=== PATIENT | male | born 1980 | race Hispanic/Latino ===

== ENCOUNTER 2017-11-04 07:35 | Emergency (ER) | payer MEDICAID ==
[~2017-11-04 07:35] MED LIST: CITA-107 PO; CLOP75TA32 PO; FAMO20TA8 PO; INSU100C6 SQ; INSU100I24 SQ; METO25TA6 PO; ONDA8TAB8 PO; PANT40TA25 PO; TRAM50TA4 PO; TYL3B PO
[2017-11-04] MEDS ORDERED: NITROGLYCERIN 0.4 MG SL TAB SL ONE (08:01)
[2017-11-04] MEDS ORDERED: ASPIRIN 325 MG TABLET ONE (08:01)
[2017-11-04] MEDS ORDERED: FAMOTIDINE/PF 20 MG/2 ML VIAL IV ONE (08:01)
[2017-11-04 08:02] LABS: BASOPHILS % (AUTO) 0.6 % (0.0-5.0); EOSINOPHILS % (AUTO) 0.6 % (0.0-8.0); HEMATOCRIT 47.5 % (42-54); LYMPHOCYTES % (AUTO) 16.7 % (21.0-51.0); MEAN CORPUSCULAR HEMOGLOBIN 25.9 pg (27.0-33.0); MEAN CORPUSCULAR HGB CONC 33.1 g/dL (32.0-36.0); MEAN CORPUSCULAR VOLUME 78.1 fL (79-99); MONOCYTES % (AUTO) 5.4 % (3.0-13.0); NEUTROPHILS % (AUTO) 76.7 % (40.0-77.0); PLATELET COUNT (AUTO) 244 K/uL (130-400); RED BLOOD CELL COUNT(AUTO) 6.08 MIL/uL (4.50-6.20)
[2017-11-04 08:19] LABS: INR 0.92 (0.85-1.15); PROTHROMBIN TIME 9.7 SEC (9.6-11.6)
[2017-11-04 08:20] LABS: POTASSIUM 4.1 mmol/L (3.5-5.1)
[2017-11-04 08:26] LABS: ALBUMIN 3.4 g/dL (3.5-5.0); BILIRUBIN,TOTAL 0.4 mg/dL (0.2-1.0); TOTAL PROTEIN, SERUM 7.5 g/dL (6.0-8.3)
[2017-11-04] MEDS ORDERED: ONDANSETRON HCL 4 MG/2 ML VIAL ONE (08:32)
[2017-11-04] MEDS ORDERED: SODIUM CHLORIDE 0.9% 500ML 500 ML IV ONE (08:33)
[2017-11-04] MEDS ORDERED: KETOROLAC TROMETHAMINE 30MG/ML ONE (08:37)
[2017-11-04] MEDS ORDERED: MORPHINE SULFATE 8 MG/ML VIAL ONE (09:26)
[2017-11-04] MEDS ORDERED: MAG HYDROX/AL HYDROX/SIMETH ES 30 ML SUSP UDCUP ONE (10:10)
[2017-11-04] MEDS ORDERED: LIDOCAINE HCL 2% VISCOUS 15 ML UDCUP ONE (10:10)
[2017-11-04 10:24] LABS: APPEARANCE,URINE Clear (CLEAR); BILIRUBIN,URINE Negative (NEGATIVE); COLOR,URINE Yellow (YELLOW); GLUCOSE, URINE (UA) >=1000 mg/dL (NEGATIVE); KETONES,URINE Negative (NEGATIVE); LEUKOCYTE ESTERASE ,URINE Negative (NEGATIVE); NITRATE,URINE Negative (NEGATIVE); OCCULT BLOOD,URINE Negative (NEGATIVE); PH,URINE 5.5 (5.0-8.0); PROTEIN,URINE Negative (NEGATIVE)
[2017-11-04 10:31] LABS: AMPHET/METH SCREEN,URINE NEGATIVE (NEGATIVE); BARBITURATE SCREEN, URINE NEGATIVE (NEGATIVE); BENZODIAZEPINES SCREEN,URINE NEGATIVE (NEGATIVE); CANNABINOID SCREEN,URINE NEGATIVE (NEGATIVE); COCAINE SCREEN,URINE NEGATIVE (NEGATIVE); OPIATE SCREEN,URINE NEGATIVE (NEGATIVE); PHENCYCLIDINE SCREEN,URINE NEGATIVE (NEGATIVE)
[2017-11-04 10:47] LABS: BACTERIA,URINE Rare /HPF (None Seen); WBC,URINE 0-1 /HPF (0-1)
[2017-11-04 10:48] LABS: SQUAMOUS EPITHELIAL CELL,UR Rare /LPF (0-2)
[2017-11-04] MEDS ORDERED: SUCRALFATE 1 GM TABLET ONE (15:05)
== END 2017-11-04 15:18 | disposition home or self-care (01) ==
LOC: EDH 07:35
DX: R07.9 Chest pain, unspecified (principal); R10.9 Unspecified abdominal pain; E11.9 Type 2 diabetes mellitus without complications; Z79.4 Long term (current) use of insulin; Z87.891 Personal history of nicotine dependence; Z88.1 Allergy status to other antibiotic agents; Z88.8 Allergy status to other drugs, medicaments and biological substances
CPT/HCPCS: 36415; 71045; 80053; 80305; 81001; 83690; 84484 ×2; 85025; 85610; 85730; 93005 ×2; 96365; 96368; 96375; 99291; J1885; J2270; J2405; J3490; J7040

== ENCOUNTER → 2017-11-14 | Outpatient (CLI) | payer MEDICAID ==
[~2017-11-14] MED LIST changes: +ASPI-555 PO; +CANA300T PO; +LISI2.5T2 PO; +POTA2TAB18 PO; +PRAV40TA3 PO
== END ==
LOC: OIH 11:33
PROVIDERS: ATTEND Family Medicine
DX: I10 Essential (primary) hypertension (principal); Z95.1 Presence of aortocoronary bypass graft
CPT/HCPCS: 71046

== ENCOUNTER 2017-12-03 00:25 | Emergency (ER) | payer MEDICAID ==
[~2017-12-03 00:25] MED LIST changes: -ASPI-555 PO; -CANA300T PO; -LISI2.5T2 PO; -POTA2TAB18 PO; -PRAV40TA3 PO
[2017-12-03 02:29] LABS: APPEARANCE,URINE Clear (CLEAR); BILIRUBIN,URINE Negative (NEGATIVE); COLOR,URINE Yellow (YELLOW); GLUCOSE, URINE (UA) >=1000 mg/dL (NEGATIVE); KETONES,URINE Negative (NEGATIVE); LEUKOCYTE ESTERASE ,URINE Negative (NEGATIVE); NITRATE,URINE Negative (NEGATIVE); OCCULT BLOOD,URINE Negative (NEGATIVE); PROTEIN,URINE Negative (NEGATIVE); UROBILINOGEN,URINE 0.2 mg/dL (0.2-1.0)
[2017-12-03 02:38] LABS: BASOPHILS % (AUTO) 0.6 % (0.0-5.0); EOSINOPHILS % (AUTO) 0.3 % (0.0-8.0); HEMATOCRIT 47.1 % (42-54); LYMPHOCYTES % (AUTO) 16.2 % (21.0-51.0); MEAN CORPUSCULAR HEMOGLOBIN 25.7 pg (27.0-33.0); MEAN CORPUSCULAR HGB CONC 32.7 g/dL (32.0-36.0); MEAN CORPUSCULAR VOLUME 78.6 fL (79-99); MONOCYTES % (AUTO) 5.6 % (3.0-13.0); NEUTROPHILS % (AUTO) 77.3 % (40.0-77.0); PLATELET COUNT (AUTO) 215 K/uL (130-400); RED BLOOD CELL COUNT(AUTO) 5.99 MIL/uL (4.50-6.20); RED CELL DISTRIBUTION WIDTH 15.3 % (11.0-15.5); WHITE BLOOD COUNT (AUTO) 11.8 K/uL (4.8-10.8)
[2017-12-03] MEDS ORDERED: ONDANSETRON HCL 4 MG/2 ML VIAL ONE (02:43)
[2017-12-03] MEDS ORDERED: SODIUM CHLORIDE 0.9% 1000ML 1,000 ML IV ONE ×2 (02:43→03:37)
[2017-12-03 02:45] LABS: BACTERIA,URINE None Seen /HPF (None Seen); RBC,URINE 0-1 /HPF (0-1); SQUAMOUS EPITHELIAL CELL,UR Rare /LPF (0-2); WBC,URINE None Seen /HPF (0-1); YEAST,URINE BUDDING None Seen /HPF (None Seen)
[2017-12-03 02:53] LABS: CREATININE 1.2 mg/dL (0.5-1.5); POTASSIUM 4.1 mmol/L (3.5-5.1)
[2017-12-03 02:58] LABS: ALBUMIN 3.3 g/dL (3.5-5.0); BILIRUBIN,TOTAL 0.2 mg/dL (0.2-1.0); TOTAL PROTEIN, SERUM 7.5 g/dL (6.0-8.3)
[2017-12-03] MEDS ORDERED: MAG HYDROX/AL HYDROX/SIMETH ES 30 ML SUSP UDCUP ONE (03:37)
[2017-12-03] MEDS ORDERED: LIDOCAINE HCL 2% VISCOUS 15 ML UDCUP ONE (03:37)
[2017-12-03] MEDS ORDERED: METOCLOPRAMIDE 10 MG TABLET ONE (03:38)
[2017-12-03] MEDS ORDERED: INSULIN HUMULIN R 100 UNIT/ML 3ML ONE (03:39)
== END 2017-12-03 05:11 | disposition home or self-care (01) ==
LOC: EDH 00:25
DX: K29.00 Acute gastritis without bleeding (principal); E11.43 Type 2 diabetes mellitus with diabetic autonomic (poly)neuropathy; K31.84 Gastroparesis; E86.0 Dehydration; Z88.1 Allergy status to other antibiotic agents; Z88.8 Allergy status to other drugs, medicaments and biological substances
CPT/HCPCS: 36415; 80053; 81001; 82150; 82550; 82948; 83690; 84484; 85025; 93005; 96361; 96374; 96375; 99285; J1815; J2405; J7030 ×2

== ENCOUNTER → 2018-01-19 | Outpatient (CLI) | payer MEDICAID ==
[~2018-01-19] MED LIST changes: +ASPI-555 PO; +CANA300T PO; +LISI2.5T2 PO; +POTA2TAB18 PO; +PRAV40TA3 PO
== END | disposition home or self-care (01) ==
LOC: SHCH 15:53
PROVIDERS: ATTEND Internal Medicine Cardiovascular Disease
DX: R01.1 Cardiac murmur, unspecified (principal); Z95.1 Presence of aortocoronary bypass graft
CPT/HCPCS: 93306

== ENCOUNTER 2018-03-05 23:38 | Emergency (ER) | payer MEDICAID ==
[~2018-03-05 23:38] MED LIST changes: -ASPI-555 PO; -CANA300T PO; -LISI2.5T2 PO; -POTA2TAB18 PO; -PRAV40TA3 PO
[2018-03-05] MEDS ORDERED: ONDANSETRON HCL 4 MG/2 ML VIAL ONE (23:50)
[2018-03-06 00:05] LABS: BASOPHILS % (AUTO) 0.8 % (0.0-5.0); EOSINOPHILS % (AUTO) 0.8 % (0.0-8.0); HEMATOCRIT 46.7 % (42-54); LYMPHOCYTES % (AUTO) 25.1 % (21.0-51.0); MEAN CORPUSCULAR HEMOGLOBIN 26.6 pg (27.0-33.0); MEAN CORPUSCULAR HGB CONC 33.2 g/dL (32.0-36.0); MEAN CORPUSCULAR VOLUME 80.1 fL (79-99); MONOCYTES % (AUTO) 6.1 % (3.0-13.0); NEUTROPHILS % (AUTO) 67.2 % (40.0-77.0); PLATELET COUNT (AUTO) 245 K/uL (130-400); RED BLOOD CELL COUNT(AUTO) 5.83 MIL/uL (4.50-6.20); RED CELL DISTRIBUTION WIDTH 15.1 % (11.0-15.5); WHITE BLOOD COUNT (AUTO) 11.1 K/uL (4.8-10.8)
[2018-03-06 00:20] LABS: ALBUMIN 3.7 g/dL (3.5-5.0); BILIRUBIN,TOTAL 0.4 mg/dL (0.2-1.0); CREATININE 1.3 mg/dL (0.5-1.5); POTASSIUM 4.2 mmol/L (3.5-5.1); TOTAL PROTEIN, SERUM 7.8 g/dL (6.0-8.3)
[2018-03-06] MEDS ORDERED: IOPAMIDOL-370 75 ML VIAL IV ONE (00:53)
[2018-03-06] MEDS ORDERED: SODIUM CHLORIDE 0.9% 1000ML 1,000 ML IV ONE (01:09)
[2018-03-06] MEDS ORDERED: MORPHINE SULFATE 4 MG/1ML SYG ONE (01:09)
[2018-03-06] MEDS ORDERED: INSULIN HUMULIN R 100 UNIT/ML 3ML ONE (01:10)
[2018-03-06 01:28] LABS: APPEARANCE,URINE Clear (CLEAR); BILIRUBIN,URINE Negative (NEGATIVE); COLOR,URINE Yellow (YELLOW); GLUCOSE, URINE (UA) >=1000 mg/dL (NEGATIVE); KETONES,URINE Negative (NEGATIVE); LEUKOCYTE ESTERASE ,URINE Negative (NEGATIVE); NITRATE,URINE Negative (NEGATIVE); OCCULT BLOOD,URINE Negative (NEGATIVE); PH,URINE 5.5 (5.0-8.0); PROTEIN,URINE Negative (NEGATIVE); UROBILINOGEN,URINE 0.2 mg/dL (0.2-1.0)
[2018-03-06 01:43] LABS: AMORPHOUS SEDIMENT,UR Few /LPF (None Seen); BACTERIA,URINE None Seen /HPF (None Seen); MUCUS,URINE Moderate LPF (None Seen); RBC,URINE None Seen /HPF (0-1); SQUAMOUS EPITHELIAL CELL,UR Few /HPF (0-2); WBC,URINE None Seen /HPF (0-1)
[2018-03-06] MEDS ORDERED: ONDANSETRON HCL 4 MG/2 ML VIAL ONE (01:43)
[2018-03-06] MEDS ORDERED: MORPHINE SULFATE 2 MG/ML 1ML SYG ONE (03:21)
== END 2018-03-06 04:45 | disposition home or self-care (01) ==
LOC: EDH 23:38
DX: K29.70 Gastritis, unspecified, without bleeding (principal); K57.90 Diverticulosis of intestine, part unspecified, without perforation or abscess without bleeding; E11.9 Type 2 diabetes mellitus without complications; I10 Essential (primary) hypertension; E78.5 Hyperlipidemia, unspecified; Z88.1 Allergy status to other antibiotic agents; Z95.1 Presence of aortocoronary bypass graft; Z98.890 Other specified postprocedural states; Z79.4 Long term (current) use of insulin
CPT/HCPCS: 36415; 74177; 80053; 81001; 82150; 83690; 85025; 93005; 96361 ×2; 96374; 96375; 96376; 99285; J1815; J2270; J2405 ×2; J7030; Q9967

== ENCOUNTER 2018-03-19 15:50 | Observation (INO) | payer MEDICAID ==
[~2018-03-19] VITALS: Ht 172.7 cm; Wt 88.5 kg
[2018-03-19 16:18] LABS: BASOPHILS % (AUTO) 0.5 % (0.0-5.0); EOSINOPHILS % (AUTO) 0.6 % (0.0-8.0); LYMPHOCYTES % (AUTO) 17.7 % (21.0-51.0); MEAN CORPUSCULAR HEMOGLOBIN 27.4 pg (27.0-33.0); MEAN CORPUSCULAR HGB CONC 34.4 g/dL (32.0-36.0); MEAN CORPUSCULAR VOLUME 79.7 fL (79-99); MONOCYTES % (AUTO) 5.8 % (3.0-13.0); NEUTROPHILS % (AUTO) 75.4 % (40.0-77.0); NUCLEATED RED BLOOD CELLS 0.1 % (0.0-0.19); PLATELET COUNT (AUTO) 217 K/uL (130-400); RED BLOOD CELL COUNT(AUTO) 5.51 MIL/uL (4.50-6.20); RED CELL DISTRIBUTION WIDTH 14.8 % (11.0-15.5); WHITE BLOOD COUNT (AUTO) 11.5 K/uL (4.8-10.8)
[2018-03-19 16:30] LABS: CREATININE 1.4 mg/dL (0.5-1.5); POTASSIUM 3.9 mmol/L (3.5-5.1)
[2018-03-19 16:36] LABS: ALBUMIN 3.4 g/dL (3.5-5.0); BILIRUBIN,TOTAL 0.3 mg/dL (0.2-1.0); TOTAL PROTEIN, SERUM 7.1 g/dL (6.0-8.3)
[2018-03-19] MEDS ORDERED: ONDANSETRON HCL 4 MG/2 ML VIAL ONE ×2 (17:28→20:14)
[2018-03-19] MEDS ORDERED: MORPHINE SULFATE 8 MG/ML VIAL ONE (17:28)
[2018-03-19] MEDS ORDERED: SODIUM CHLORIDE 0.9% 500ML 500 ML IV ONE (17:29)
[2018-03-19] MEDS ORDERED: IOPAMIDOL-370 100 ML VIAL IV ONE (17:32)
[2018-03-19 18:42] LABS: INR 0.93 (0.85-1.15); PARTIAL THROMBOPLASTIN TIME 26.6 SEC (26.3-35.5); PROTHROMBIN TIME 9.8 SEC (9.6-11.6)
[2018-03-19 20:00] LABS: APPEARANCE,URINE Clear (CLEAR); BILIRUBIN,URINE Negative (NEGATIVE); COLOR,URINE Yellow (YELLOW); GLUCOSE, URINE (UA) >=1000 mg/dL (NEGATIVE); KETONES,URINE Negative (NEGATIVE); LEUKOCYTE ESTERASE ,URINE Negative (NEGATIVE); NITRATE,URINE Negative (NEGATIVE); OCCULT BLOOD,URINE Negative (NEGATIVE); PROTEIN,URINE Negative (NEGATIVE); UROBILINOGEN,URINE 0.2 mg/dL (0.2-1.0)
[2018-03-19 20:23] LABS: BACTERIA,URINE Rare /HPF (None Seen); MUCUS,URINE Rare LPF (None Seen); RBC,URINE None Seen /HPF (0-1); SQUAMOUS EPITHELIAL CELL,UR None Seen /HPF (0-2); WBC,URINE 0-1 /HPF (0-1)
[2018-03-19] MEDS ORDERED: MAG HYDROX/AL HYDROX/SIMETH ES 30 ML SUSP UDCUP ONE (20:24)
[2018-03-19] MEDS ORDERED: LIDOCAINE HCL 2% VISCOUS 15 ML UDCUP ONE (20:24)
[2018-03-19] MEDS ORDERED: ASPIRIN 81MG TAB.CHEW ONE (21:00)
[2018-03-19] MEDS ORDERED: DEXTROSE 50%-WATER 50 ML DISP.SYRIN IV PRN (22:00)
[2018-03-19] MEDS ORDERED: GLUCAGON 1MG KIT 1 MG ML IM PRN (22:00)
[2018-03-19 23:28] LABS: CREATINE KINASE MB 1.1 ng/mL (0.5-3.6); CREATINE KINASE, TOTAL 50 U/L (21-232); MYOGLOBIN 37 ng/mL (10-92); TROPONIN I < 0.04 ng/mL (0.00-0.06)
[2018-03-20 06:28] LABS: CREATINE KINASE MB 0.8 ng/mL (0.5-3.6); CREATINE KINASE, TOTAL 43 U/L (21-232); MYOGLOBIN 35 ng/mL (10-92); TROPONIN I < 0.04 ng/mL (0.00-0.06)
[2018-03-20] MEDS ORDERED: SODIUM CHLORIDE 0.9% 10 ML VIAL IVP PRN (08:15)
[2018-03-20 08:23] VITALS: BP 135/90
[2018-03-20] MEDS: ASPIRIN 325 MG TABLET PO SCH (09:00)
[2018-03-20 10:10] LABS: CREATINE KINASE MB 0.7 ng/mL (0.5-3.6); CREATINE KINASE, TOTAL 44 U/L (21-232); MYOGLOBIN 42 ng/mL (10-92); TROPONIN I < 0.04 ng/mL (0.00-0.06)
[2018-03-20 11:19] VITALS: BP 143/81
[2018-03-20] MEDS ORDERED: REGADENOSON 0.4 MG/5 ML PF SYG IVP SCH (11:30)
[2018-03-20] MEDS: INSULIN R PO SS1 SQ SCH ×3 (11:30→21:02)
[2018-03-20] MEDS ORDERED: POTA2TAB18 PO (12:04)
[2018-03-20] MEDS ORDERED: CANA300T PO (12:04)
[2018-03-20] MEDS ORDERED: LISI2.5T2 PO (12:04)
[2018-03-20] MEDS ORDERED: ASPI-555 PO (12:04)
[2018-03-20] MEDS ORDERED: PRAV40TA3 PO (12:04)
[2018-03-20 16:59] VITALS: BP 142/91
[2018-03-20] MEDS ORDERED: ACETAMINOPHEN-CODEINE 300/30MG TAB PO PRN (17:30)
[2018-03-20] MEDS ORDERED: POTASSIUM GLUCONATE 595 MG PO PRN (17:30)
[2018-03-20 20:12] VITALS: BP 126/76
[2018-03-20] MEDS: METOPROLOL TARTRATE 25 MG TAB PO SCH (20:40)
[2018-03-20] MEDS: INSULIN DEGLUDEC 80 UNIT SQ SCH (20:42)
[2018-03-20] MEDS ORDERED: LISINOPRIL 2.5 MG TABLET PO SCH (21:00)
[2018-03-20] MEDS ORDERED: TRAMADOL HCL 50 MG TABLET PO SCH (21:00)
[2018-03-20] MEDS ORDERED: FAMOTIDINE 20MG TAB 20 MG TAB PO SCH (21:00)
[2018-03-21 00:16] VITALS: BP 114/70
[2018-03-21 04:20] VITALS: BP 125/75
[2018-03-21 07:57] VITALS: BP 128/81
[2018-03-21] MEDS: INSULIN DEGLUDEC 80 UNIT SQ SCH (08:44)
[2018-03-21] MEDS: METOPROLOL TARTRATE 25 MG TAB PO SCH (08:44)
[2018-03-21] MEDS: ASPIRIN 325 MG TABLET PO SCH (08:44)
[2018-03-21] MEDS ORDERED: CITALOPRAM 20 MG TABLET PO SCH (09:00)
[2018-03-21] MEDS ORDERED: PANTOPRAZOLE SODIUM 40 MG TABLET.DR PO SCH (09:00)
[2018-03-21] MEDS ORDERED: ASPIRIN 81 MG EC TAB PO SCH (09:00)
[2018-03-21] MEDS ORDERED: CLOPIDOGREL BISULFATE 75 MG TAB PO SCH (09:00)
[2018-03-21] MEDS ORDERED: ATORVASTATIN CALCIUM 10 MG TABLET PO SCH (09:00)
== END 2018-03-21 09:00 | disposition home or self-care (01) ==
LOC: EDH 15:50 → EDHIP 15:51 → UNDOADMOB 21:29 → EDHIP 21:29 → 4AH 03-20 08:03
PROVIDERS: ADMIT Internal Medicine; ATTEND Internal Medicine
DX: R07.89 Other chest pain (principal); E10.43 Type 1 diabetes mellitus with diabetic autonomic (poly)neuropathy; I25.10 Atherosclerotic heart disease of native coronary artery without angina pectoris; E78.5 Hyperlipidemia, unspecified; G47.33 Obstructive sleep apnea (adult) (pediatric); G89.4 Chronic pain syndrome; I10 Essential (primary) hypertension; I25.2 Old myocardial infarction; K31.84 Gastroparesis; Z82.49 Family history of ischemic heart disease and other diseases of the circulatory system; Z91.19 Patient's noncompliance with other medical treatment and regimen; Z95.1 Presence of aortocoronary bypass graft; Z79.4 Long term (current) use of insulin
CPT/HCPCS: 36415 ×2; 71275; 78452; 80053; 81001; 82550 ×4; 82553 ×3; 82948 ×8; 83874 ×3; 84484 ×4; 85025; 85610; 85730; 93005; 93017; 96372; 96374; 99285; A9500 ×2; G0378 ×41; J1815; J2270; J2405 ×2; J2785; J7040; J7070; Q9967

== ENCOUNTER 2018-04-03 23:01 | Emergency (ER) | payer MEDICAID ==
[~2018-04-03 23:01] MED LIST changes: +ASPI-555 PO; +CANA300T PO; +LISI2.5T2 PO; -ONDA8TAB8 PO; +POTA2TAB18 PO; +PRAV40TA3 PO
[2018-04-04 00:14] LABS: APPEARANCE,URINE Clear (CLEAR); BILIRUBIN,URINE Negative (NEGATIVE); COLOR,URINE Yellow (YELLOW); GLUCOSE, URINE (UA) >=1000 mg/dL (NEGATIVE); KETONES,URINE Negative (NEGATIVE); LEUKOCYTE ESTERASE ,URINE Negative (NEGATIVE); NITRATE,URINE Negative (NEGATIVE); OCCULT BLOOD,URINE Negative (NEGATIVE); PROTEIN,URINE Negative (NEGATIVE); UROBILINOGEN,URINE 0.2 mg/dL (0.2-1.0)
[2018-04-04 00:15] LABS: BASOPHILS % (AUTO) 0.5 % (0.0-5.0); EOSINOPHILS % (AUTO) 0.5 % (0.0-8.0); HEMATOCRIT 44.9 % (42-54); LYMPHOCYTES % (AUTO) 17.9 % (21.0-51.0); MEAN CORPUSCULAR HEMOGLOBIN 26.7 pg (27.0-33.0); MEAN CORPUSCULAR HGB CONC 33.6 g/dL (32.0-36.0); MEAN CORPUSCULAR VOLUME 79.7 fL (79-99); MONOCYTES % (AUTO) 4.9 % (3.0-13.0); NEUTROPHILS % (AUTO) 76.2 % (40.0-77.0); PLATELET COUNT (AUTO) 203 K/uL (130-400); RED BLOOD CELL COUNT(AUTO) 5.64 MIL/uL (4.50-6.20); RED CELL DISTRIBUTION WIDTH 14.7 % (11.0-15.5); WHITE BLOOD COUNT (AUTO) 13.3 K/uL (4.8-10.8)
[2018-04-04 00:20] LABS: BACTERIA,URINE Rare /HPF (None Seen); RBC,URINE None Seen /HPF (0-1); WBC,URINE None Seen /HPF (0-1)
[2018-04-04] MEDS ORDERED: METHYLPREDNISOLONE SOD SUCC 125MG/2ML VIAL ONE (01:32)
[2018-04-04] MEDS ORDERED: AZITHROMYCIN 250 MG TABLET PO ONE (02:07)
== END 2018-04-04 02:14 | disposition home or self-care (01) ==
LOC: EDH 23:01
DX: J20.9 Acute bronchitis, unspecified (principal); I10 Essential (primary) hypertension; I25.2 Old myocardial infarction; E78.5 Hyperlipidemia, unspecified; R79.1 Abnormal coagulation profile; E11.9 Type 2 diabetes mellitus without complications; I25.10 Atherosclerotic heart disease of native coronary artery without angina pectoris; Z95.1 Presence of aortocoronary bypass graft; G47.39 Other sleep apnea; Z98.890 Other specified postprocedural states; Z88.8 Allergy status to other drugs, medicaments and biological substances
CPT/HCPCS: 36415; 71045; 80053; 81001; 82550; 82553; 83880; 84484 ×2; 85025; 85610; 85730; 93005 ×2; 99285; J2930

== ENCOUNTER 2018-04-07 15:28 | Emergency (ER) | payer MEDICAID ==
[2018-04-07 16:20] LABS: BASOPHILS % (AUTO) 0.5 % (0.0-5.0); EOSINOPHILS % (AUTO) 0.3 % (0.0-8.0); LYMPHOCYTES % (AUTO) 19.7 % (21.0-51.0); MEAN CORPUSCULAR HEMOGLOBIN 26.4 pg (27.0-33.0); MEAN CORPUSCULAR HGB CONC 33.2 g/dL (32.0-36.0); MEAN CORPUSCULAR VOLUME 79.6 fL (79-99); MONOCYTES % (AUTO) 5.5 % (3.0-13.0); NUCLEATED RED BLOOD CELLS 0.1 % (0.0-0.19); PLATELET COUNT (AUTO) 307 K/uL (130-400); RED BLOOD CELL COUNT(AUTO) 6.02 MIL/uL (4.50-6.20); WHITE BLOOD COUNT (AUTO) 12.2 K/uL (4.8-10.8)
[2018-04-07 16:22] LABS: CREATININE 1.1 mg/dL (0.5-1.5); POTASSIUM 3.9 mmol/L (3.5-5.1)
[2018-04-07 16:26] LABS: ALBUMIN 3.7 g/dL (3.5-5.0); BILIRUBIN,TOTAL 0.4 mg/dL (0.2-1.0); TOTAL PROTEIN, SERUM 7.9 g/dL (6.0-8.3)
[2018-04-07 16:34] LABS: CREATINE KINASE MB 1.2 ng/mL (0.5-3.6); CREATINE KINASE, TOTAL 67 U/L (21-232); LIPASE 65 U/L (114-286); MYOGLOBIN 67 ng/mL (10-92); TROPONIN I < 0.04 ng/mL (0.00-0.06)
[2018-04-07] MEDS ORDERED: SODIUM CHLORIDE 0.9% 1000ML 1,000 ML IV ONE (17:33)
[2018-04-07 19:33] LABS: APPEARANCE,URINE Clear (CLEAR); BILIRUBIN,URINE Negative (NEGATIVE); COLOR,URINE Dark Yellow (YELLOW); GLUCOSE, URINE (UA) >=1000 mg/dL (NEGATIVE); KETONES,URINE Trace mg/dL (NEGATIVE); LEUKOCYTE ESTERASE ,URINE Negative (NEGATIVE); NITRATE,URINE Negative (NEGATIVE); OCCULT BLOOD,URINE Negative (NEGATIVE); PROTEIN,URINE POS 1+ (NEGATIVE)
[2018-04-07 20:03] LABS: BACTERIA,URINE Rare /HPF (None Seen); MUCUS,URINE Few LPF (None Seen); SQUAMOUS EPITHELIAL CELL,UR 0-2 /HPF (0-2); WBC,URINE 0-1 /HPF (0-1)
== END 2018-04-07 19:39 | disposition home or self-care (01) ==
LOC: EDH 15:28
DX: R07.89 Other chest pain (principal); R61 Generalized hyperhidrosis; R00.2 Palpitations; R06.02 Shortness of breath; R55 Syncope and collapse; R10.9 Unspecified abdominal pain; E11.9 Type 2 diabetes mellitus without complications; E78.5 Hyperlipidemia, unspecified; I10 Essential (primary) hypertension; Z88.1 Allergy status to other antibiotic agents
CPT/HCPCS: 36415; 71045; 80053; 81001; 82550; 82553; 82948; 83690; 83874; 84484 ×2; 85025; 85378; 93005 ×2; 96360; 99285; J7030

== ENCOUNTER 2018-07-08 20:52 | Emergency (ER) | payer MEDICAID ==
[~2018-07-08 20:52] MED LIST changes: -CITA-107 PO; +INSNOV SQ; -INSU100C6 SQ; +NITR0.4T50 SL; +RANO500T3 PO; -TYL3B PO
[2018-07-08] MEDS ORDERED: LIDOCAINE HCL 2% VISCOUS 15 ML UDCUP ONE (21:04)
[2018-07-08] MEDS ORDERED: MAG HYDROX/AL HYDROX/SIMETH ES 30 ML SUSP UDCUP ONE (21:04)
[2018-07-08] MEDS ORDERED: ONDANSETRON ODT 4 MG TAB ONE (21:11)
[2018-07-08 21:17] LABS: APPEARANCE,URINE Clear (CLEAR); BILIRUBIN,URINE Negative (NEGATIVE); COLOR,URINE Yellow (YELLOW); GLUCOSE, URINE (UA) >=1000 mg/dL (NEGATIVE); KETONES,URINE Negative (NEGATIVE); LEUKOCYTE ESTERASE ,URINE Negative (NEGATIVE); NITRATE,URINE Negative (NEGATIVE); OCCULT BLOOD,URINE Negative (NEGATIVE); PH,URINE 5.5 (5.0-8.0); PROTEIN,URINE Negative (NEGATIVE)
[2018-07-08 21:25] LABS: AMPHET/METH SCREEN,URINE NEGATIVE (NEGATIVE); BARBITURATE SCREEN, URINE NEGATIVE (NEGATIVE); BENZODIAZEPINES SCREEN,URINE NEGATIVE (NEGATIVE); CANNABINOID SCREEN,URINE NEGATIVE (NEGATIVE); COCAINE SCREEN,URINE NEGATIVE (NEGATIVE); OPIATE SCREEN,URINE NEGATIVE (NEGATIVE); PHENCYCLIDINE SCREEN,URINE NEGATIVE (NEGATIVE)
[2018-07-08 21:34] LABS: BACTERIA,URINE Rare /HPF (None Seen); RBC,URINE 0-1 /HPF (0-1); SQUAMOUS EPITHELIAL CELL,UR None Seen /HPF (0-2); WBC,URINE 0-1 /HPF (0-1)
== END 2018-07-08 21:15 | disposition home or self-care (01) ==
LOC: EDH 20:52
DX: K52.9 Noninfective gastroenteritis and colitis, unspecified (principal); B34.9 Viral infection, unspecified; K21.9 Gastro-esophageal reflux disease without esophagitis; K29.70 Gastritis, unspecified, without bleeding; E78.5 Hyperlipidemia, unspecified; I25.10 Atherosclerotic heart disease of native coronary artery without angina pectoris; G89.29 Other chronic pain; R07.9 Chest pain, unspecified; I10 Essential (primary) hypertension; I25.2 Old myocardial infarction; Z95.1 Presence of aortocoronary bypass graft; Z88.8 Allergy status to other drugs, medicaments and biological substances
CPT/HCPCS: 80305; 81001

== ENCOUNTER 2018-12-09 12:20 | Observation (INO) | payer MEDICAID ==
[~2018-12-09] VITALS: Ht 172.7 cm; Wt 84.8 kg
[2018-12-09] MEDS ORDERED: DIPHENHYDRAMINE HCL 25 MG CAPSULE PO PRN (13:00)
[2018-12-09] MEDS ORDERED: GUAIFENESIN SUGAR-FREE 100 MG/5 ML UDCUP PO PRN (13:00)
[2018-12-09] MEDS ORDERED: GLUCAGON 1MG KIT 1 MG ML IM PRN (13:00)
[2018-12-09] MEDS ORDERED: ZOLPIDEM TARTRATE 5 MG TAB PO PRN (13:00)
[2018-12-09] MEDS ORDERED: DEXTROSE 50%-WATER 50 ML DISP.SYRIN IV PRN (13:00)
[2018-12-09] MEDS ORDERED: ALBUTEROL SULFATE 0.083% 2.5 MG/3 ML INH IH PRN (13:15)
[2018-12-09] MEDS: ALBUTEROL SULFATE 0.083% 2.5 MG/3 ML INH IH SCH ×2 (13:21→16:07)
[2018-12-09 13:24] VITALS: BP 124/73
[2018-12-09] MEDS: CEFTRIAXONE SODIUM 1 GM IVP SCH (14:40)
[2018-12-09] MEDS: 1/2 NORMAL SALINE 1,000 ML IV SCH (14:53)
[2018-12-09] MEDS ORDERED: PHARMACY COMMUNICATION MISC SCH (15:45)
[2018-12-09 16:00] VITALS: BP 119/77
[2018-12-09] MEDS ORDERED: INSU100V37 SQ (16:08)
[2018-12-09] MEDS ORDERED: LISI2.5T2 PO (16:08)
[2018-12-09] MEDS ORDERED: TRAM50TA4 PO (16:08)
[2018-12-09] MEDS ORDERED: PRAV40TA3 PO (16:08)
[2018-12-09] MEDS ORDERED: XALA2.5OS OD (16:08)
[2018-12-09] MEDS ORDERED: FAMO20TA8 PO (16:08)
[2018-12-09] MEDS ORDERED: ASPI-1197 PO (16:08)
[2018-12-09] MEDS ORDERED: ONDA4SOL2 SL (16:08)
[2018-12-09] MEDS ORDERED: DULA1.5P SQ (16:08)
[2018-12-09] MEDS ORDERED: PANT40SU PO (16:08)
[2018-12-09] MEDS ORDERED: BUSP10TA3 PO (16:08)
[2018-12-09] MEDS ORDERED: CLOP75TA14 PO (16:08)
[2018-12-09] MEDS ORDERED: CITA-106 PO (16:08)
[2018-12-09] MEDS ORDERED: METO25TA6 PO (16:08)
[2018-12-09] MEDS ORDERED: ACETAMINOPHEN 325 MG TAB ONE (16:14)
[2018-12-09] MEDS ORDERED: ACETAMINOPHEN 325 MG TAB PO PRN (16:15)
[2018-12-09] MEDS: HUMALOG PO SS1 SQ SCH ×2 (16:30→21:00)
[2018-12-09] MEDS ORDERED: HUMALOG PO SS1 SQ SCH (16:30)
[2018-12-09] MEDS: IPRATROPIUM/ALBUTEROL SULFATE 3 ML SOLUTION IH SCH ×2 (19:21→23:26)
[2018-12-09 19:52] VITALS: BP 130/78
[2018-12-09] MEDS: OSELTAMIVIR PHOSPHATE 75 MG CAP PO SCH (20:28)
[2018-12-10] VITALS (7 sets, daily range): BP systolic 97–147; BP diastolic 51–92
[2018-12-10] MEDS: 1/2 NORMAL SALINE 1,000 ML IV SCH ×2 (01:02→15:40)
[2018-12-10] MEDS: ONDANSETRON HCL 4 MG/2 ML VIAL IVP PRN (04:47)
[2018-12-10] MEDS: ALBUTEROL SULFATE 0.083% 2.5 MG/3 ML INH IH SCH ×2 (06:00)
[2018-12-10] MEDS: IPRATROPIUM/ALBUTEROL SULFATE 3 ML SOLUTION IH SCH ×4 (06:24→23:51)
[2018-12-10] MEDS: HUMALOG PO SS1 SQ SCH ×4 (06:32→21:00)
[2018-12-10] MEDS: OSELTAMIVIR PHOSPHATE 75 MG CAP PO SCH ×2 (08:45→20:30)
[2018-12-10 10:21] LABS: POTASSIUM 3.9 mmol/L (3.5-5.1)
[2018-12-10 10:24] LABS: HEMATOCRIT 44.1 % (42-54); MEAN CORPUSCULAR HEMOGLOBIN 27.9 pg (27.0-33.0); MEAN CORPUSCULAR HGB CONC 33.4 g/dL (32.0-36.0); MEAN CORPUSCULAR VOLUME 83.5 fL (79-99); PLATELET COUNT (AUTO) 199 K/uL (130-400); RED BLOOD CELL COUNT(AUTO) 5.28 MIL/uL (4.50-6.20); RED CELL DISTRIBUTION WIDTH 13.9 % (11.0-15.5); WHITE BLOOD COUNT (AUTO) 8.1 K/uL (4.8-10.8)
[2018-12-10] MEDS ORDERED: ONDANSETRON ODT 4 MG TAB SL PRN (10:30)
[2018-12-10] MEDS ORDERED: TRAMADOL HCL 50 MG TABLET PO PRN (10:30)
[2018-12-10] MEDS ORDERED: NITROGLYCERIN 0.4 MG SL TAB SL PRN (10:30)
[2018-12-10] MEDS: ENOXAPARIN SODIUM 40 MG/0.4 ML SYRINGE SQ SCH (11:42)
[2018-12-10] MEDS: CEFTRIAXONE SODIUM 1 GM IVP SCH (14:34)
[2018-12-10] MEDS ORDERED: ALBUTEROL SULFATE 0.083% 2.5 MG/3 ML INH IH PRN ×2 (17:15→18:30)
[2018-12-10] MEDS ORDERED: SIMVASTATIN 20 MG TABLET PO SCH (21:00)
[2018-12-10] MEDS ORDERED: LATANOPROST 2.5 ML DROPS OD SCH (21:00)
[2018-12-11] MEDS: 1/2 NORMAL SALINE 1,000 ML IV SCH (04:03)
[2018-12-11 04:10] VITALS: BP 135/79
[2018-12-11 04:52] LABS: HEMATOCRIT 40.6 % (42-54); MEAN CORPUSCULAR HEMOGLOBIN 27.6 pg (27.0-33.0); MEAN CORPUSCULAR HGB CONC 33.2 g/dL (32.0-36.0); MEAN CORPUSCULAR VOLUME 83.3 fL (79-99); PLATELET COUNT (AUTO) 200 K/uL (130-400); RED BLOOD CELL COUNT(AUTO) 4.87 MIL/uL (4.50-6.20); RED CELL DISTRIBUTION WIDTH 13.8 % (11.0-15.5); WHITE BLOOD COUNT (AUTO) 7.4 K/uL (4.8-10.8)
[2018-12-11 05:00] LABS: CREATININE 0.9 mg/dL (0.5-1.5); POTASSIUM 3.6 mmol/L (3.5-5.1)
[2018-12-11] MEDS: IPRATROPIUM/ALBUTEROL SULFATE 3 ML SOLUTION IH SCH ×2 (05:21→11:13)
[2018-12-11] MEDS: ONDANSETRON HCL 4 MG/2 ML VIAL IVP PRN (05:44)
[2018-12-11] MEDS: HUMALOG PO SS1 SQ SCH ×2 (06:09→11:30)
[2018-12-11] MEDS ORDERED: PANTOPRAZOLE SODIUM 40 MG TABLET.DR PO SCH (07:30)
[2018-12-11 07:49] VITALS: BP 135/77
[2018-12-11] MEDS ORDERED: INSULIN DEGLUDEC MISC SCH (08:00)
[2018-12-11] MEDS: OSELTAMIVIR PHOSPHATE 75 MG CAP PO SCH (08:49)
[2018-12-11] MEDS: ENOXAPARIN SODIUM 40 MG/0.4 ML SYRINGE SQ SCH (08:50)
[2018-12-11] MEDS ORDERED: ***HM***(Dulaglutide (Trulicity) 1.5 MG) SQ SCH (09:00)
[2018-12-11] MEDS ORDERED: CLOPIDOGREL BISULFATE 75 MG TAB PO SCH (09:00)
[2018-12-11] MEDS ORDERED: PHARMACY COMMUNICATION MISC SCH (09:00)
[2018-12-11] MEDS ORDERED: BUSPIRONE HCL 5 MG TABLET PO SCH (09:00)
[2018-12-11] MEDS ORDERED: ASPIRIN 81MG TAB.CHEW PO SCH (09:00)
[2018-12-11] MEDS ORDERED: CITALOPRAM 20 MG TABLET PO SCH (09:00)
[2018-12-11] MEDS ORDERED: FAMOTIDINE 20MG TAB 20 MG TAB PO SCH (09:00)
[2018-12-11 11:35] VITALS: BP 128/72
[2018-12-11] MEDS: CEFTRIAXONE SODIUM 1 GM IVP SCH (13:31)
== END 2018-12-11 13:58 | disposition home or self-care (01) ==
LOC: EDH 12:20 → 4BH 12:55
PROVIDERS: ADMIT Internal Medicine; ATTEND Internal Medicine
DX: J44.1 Chronic obstructive pulmonary disease with (acute) exacerbation (principal); J11.1 Influenza due to unidentified influenza virus with other respiratory manifestations; I12.9 Hypertensive chronic kidney disease with stage 1 through stage 4 chronic kidney disease, or unspecified chronic kidney disease; N18.9 Chronic kidney disease, unspecified; K21.9 Gastro-esophageal reflux disease without esophagitis; E10.22 Type 1 diabetes mellitus with diabetic chronic kidney disease; E10.43 Type 1 diabetes mellitus with diabetic autonomic (poly)neuropathy; K31.84 Gastroparesis; E78.5 Hyperlipidemia, unspecified; G89.4 Chronic pain syndrome; I25.10 Atherosclerotic heart disease of native coronary artery without angina pectoris; Z79.4 Long term (current) use of insulin; Z95.1 Presence of aortocoronary bypass graft; Z79.899 Other long term (current) drug therapy; Z88.8 Allergy status to other drugs, medicaments and biological substances
CPT/HCPCS: 36415 ×2; 71045; 80048 ×2; 82948 ×6; 85027 ×2; 87804 ×2; 94640 ×10; 94664; 96372; 96374; 96375; 96376 ×2; 99284; A4218 ×2; G0378 ×49; J0696 ×3; J1650; J2405 ×2

== ENCOUNTER 2018-12-30 23:37 | Emergency (ER) | payer MEDICAID ==
[~2018-12-30 23:37] MED LIST changes: +ASPI-1197 PO; -ASPI-555 PO; +BUSP10TA3 PO; -CANA300T PO; +CITA-106 PO; +CLOP75TA14 PO; -CLOP75TA32 PO; +DULA1.5P SQ; -INSU100I24 SQ; +INSU100V37 SQ; +ONDA4SOL2 SL; +PANT40SU PO; -PANT40TA25 PO; -POTA2TAB18 PO; -RANO500T3 PO; +XALA2.5OS OD
[2018-12-31] MEDS ORDERED: NITROGLYCERIN 0.4 MG SL TAB SL ONE (00:40)
[2018-12-31] MEDS ORDERED: ASPIRIN 325MG EC TAB 325 MG TABLET.DR PO ONE (00:40)
[2018-12-31 00:56] LABS: BASOPHILS % (AUTO) 0.3 % (0.0-5.0); EOSINOPHILS % (AUTO) 0.8 % (0.0-8.0); HEMATOCRIT 45.1 % (42-54); MEAN CORPUSCULAR HEMOGLOBIN 27.3 pg (27.0-33.0); MEAN CORPUSCULAR HGB CONC 33.1 g/dL (32.0-36.0); MEAN CORPUSCULAR VOLUME 82.3 fL (79-99); MONOCYTES % (AUTO) 7.1 % (3.0-13.0); NEUTROPHILS % (AUTO) 64.8 % (40.0-77.0); NUCLEATED RED BLOOD CELLS 0.2 % (0.0-0.19); PLATELET COUNT (AUTO) 194 K/uL (130-400); POTASSIUM 3.6 mmol/L (3.5-5.1); RED BLOOD CELL COUNT(AUTO) 5.47 MIL/uL (4.50-6.20); RED CELL DISTRIBUTION WIDTH 14.2 % (11.0-15.5); WHITE BLOOD COUNT (AUTO) 9.4 K/uL (4.8-10.8)
[2018-12-31 00:57] LABS: INR 0.91 (0.85-1.15); PARTIAL THROMBOPLASTIN TIME 27.1 SEC (26.3-35.5); PROTHROMBIN TIME 9.6 SEC (9.6-11.6)
[2018-12-31 01:01] LABS: ALBUMIN 3.5 g/dL (3.5-5.0); BILIRUBIN,TOTAL 0.2 mg/dL (0.2-1.0); TOTAL PROTEIN, SERUM 7.2 g/dL (6.0-8.3)
[2018-12-31 01:23] LABS: B-TYPE NATRIURETIC PEPTIDE 13 pg/mL (0-100)
== END 2018-12-31 04:49 | disposition home or self-care (01) ==
LOC: EDH 23:37
DX: R07.9 Chest pain, unspecified (principal); I25.810 Atherosclerosis of coronary artery bypass graft(s) without angina pectoris; E11.43 Type 2 diabetes mellitus with diabetic autonomic (poly)neuropathy; K31.84 Gastroparesis; E78.5 Hyperlipidemia, unspecified; I10 Essential (primary) hypertension; I25.2 Old myocardial infarction; Z79.4 Long term (current) use of insulin; Z88.5 Allergy status to narcotic agent; Z88.1 Allergy status to other antibiotic agents
CPT/HCPCS: 36415; 71045; 80053; 82550; 83880; 84484; 85025; 85610; 85730; 93005

== ENCOUNTER 2019-01-11 18:48 | Emergency (ER) | payer MEDICAID ==
[2019-01-11] MEDS ORDERED: MAG HYDROX/AL HYDROX/SIMETH ES 30 ML SUSP UDCUP ONE (19:32)
[2019-01-11] MEDS ORDERED: LIDOCAINE HCL 2% VISCOUS 15 ML UDCUP ONE (19:32)
[2019-01-11] MEDS ORDERED: ONDANSETRON HCL 4 MG/2 ML VIAL ONE (19:33)
[2019-01-11] MEDS ORDERED: SODIUM CHLORIDE 0.9% 1000ML 1,000 ML IV ONE (19:38)
[2019-01-11 19:55] LABS: EOSINOPHILS % (AUTO) 0.7 % (0.0-8.0); HEMATOCRIT 44.8 % (42-54); LYMPHOCYTES % (AUTO) 24.7 % (21.0-51.0); MEAN CORPUSCULAR HEMOGLOBIN 27.5 pg (27.0-33.0); MEAN CORPUSCULAR HGB CONC 33.5 g/dL (32.0-36.0); MEAN CORPUSCULAR VOLUME 81.9 fL (79-99); NEUTROPHILS % (AUTO) 67.6 % (40.0-77.0); PLATELET COUNT (AUTO) 197 K/uL (130-400); RED BLOOD CELL COUNT(AUTO) 5.46 MIL/uL (4.50-6.20); RED CELL DISTRIBUTION WIDTH 14.2 % (11.0-15.5); WHITE BLOOD COUNT (AUTO) 8.6 K/uL (4.8-10.8)
[2019-01-11 20:05] LABS: CREATININE 1.1 mg/dL (0.5-1.5); POTASSIUM 3.9 mmol/L (3.5-5.1)
[2019-01-11 20:08] LABS: CREATINE KINASE, TOTAL 53 U/L (21-232); LIPASE 117 U/L (114-286)
[2019-01-11 20:10] LABS: ALBUMIN 3.4 g/dL (3.5-5.0); BILIRUBIN,TOTAL 0.2 mg/dL (0.2-1.0); TOTAL PROTEIN, SERUM 7.1 g/dL (6.0-8.3)
[2019-01-11] MEDS ORDERED: INSULIN HUMULIN R 100 UNIT/ML 3ML ONE (20:35)
[2019-01-11] MEDS ORDERED: FAMOTIDINE/PF 20 MG/2 ML VIAL IV ONE (20:36)
[2019-01-11 20:38] LABS: APPEARANCE,URINE Clear (CLEAR); BILIRUBIN,URINE Negative (NEGATIVE); COLOR,URINE Yellow (YELLOW); GLUCOSE, URINE (UA) >=1000 mg/dL (NEGATIVE); KETONES,URINE Negative (NEGATIVE); LEUKOCYTE ESTERASE ,URINE Negative (NEGATIVE); NITRATE,URINE Negative (NEGATIVE); OCCULT BLOOD,URINE Negative (NEGATIVE); PROTEIN,URINE Negative (NEGATIVE); UROBILINOGEN,URINE 0.2 mg/dL (0.2-1.0)
[2019-01-11 20:58] LABS: BACTERIA,URINE None Seen /HPF (None Seen); RBC,URINE None Seen /HPF (0-1); SQUAMOUS EPITHELIAL CELL,UR None Seen /HPF (0-2); WBC,URINE None Seen /HPF (0-1)
== END 2019-01-11 21:33 | disposition home or self-care (01) ==
LOC: EDH 18:48
DX: E11.43 Type 2 diabetes mellitus with diabetic autonomic (poly)neuropathy (principal); K31.84 Gastroparesis; E11.65 Type 2 diabetes mellitus with hyperglycemia; I10 Essential (primary) hypertension; E78.5 Hyperlipidemia, unspecified; I25.10 Atherosclerotic heart disease of native coronary artery without angina pectoris; Z95.1 Presence of aortocoronary bypass graft; I25.2 Old myocardial infarction; Z88.5 Allergy status to narcotic agent; Z88.1 Allergy status to other antibiotic agents; Z79.4 Long term (current) use of insulin
CPT/HCPCS: 36415; 80053; 81001; 82550; 83690; 84484; 85025; 93005; 96361; 96374; 96375; 99284; J1815; J2405; J3490; J7030

== ENCOUNTER 2019-02-12 14:50 | Inpatient (IN) | payer MEDICAID ==
[~2019-02-12] VITALS: Ht 172.7 cm; Wt 84.8 kg
[2019-02-12] MEDS ORDERED: METRONIDAZOLE 500MG/100ML BAG 100 ML ONE (15:46)
[2019-02-12] MEDS ORDERED: CEFTRIAXONE SODIUM 1 GM ONE (15:46)
[2019-02-12 16:00] VITALS: BP 135/92
[2019-02-12] MEDS ORDERED: ENOXAPARIN SODIUM 40 MG/0.4 ML SYRINGE SQ SCH (16:00)
[2019-02-12] MEDS ORDERED: ACETAMINOPHEN 325 MG TAB PO PRN (16:00)
[2019-02-12] MEDS ORDERED: NITROGLYCERIN 0.4 MG SL TAB SL PRN (16:00)
[2019-02-12] MEDS ORDERED: DIPHENHYDRAMINE HCL 25 MG CAPSULE PO PRN (16:00)
[2019-02-12] MEDS ORDERED: CLONIDINE HCL 0.1 MG TABLET PO PRN (16:00)
[2019-02-12] MEDS ORDERED: ZOLPIDEM TARTRATE 5 MG TAB PO PRN (16:00)
[2019-02-12 16:01] LABS: BASOPHILS % (AUTO) 0.6 % (0.0-5.0); EOSINOPHILS % (AUTO) 0.5 % (0.0-8.0); HEMATOCRIT 45.4 % (42-54); LYMPHOCYTES % (AUTO) 18.9 % (21.0-51.0); MEAN CORPUSCULAR HEMOGLOBIN 27.9 pg (27.0-33.0); MEAN CORPUSCULAR HGB CONC 33.4 g/dL (32.0-36.0); MEAN CORPUSCULAR VOLUME 83.6 fL (79-99); MONOCYTES % (AUTO) 5.3 % (3.0-13.0); NEUTROPHILS % (AUTO) 74.7 % (40.0-77.0); NUCLEATED RED BLOOD CELLS 0.1 % (0.0-0.19); PLATELET COUNT (AUTO) 211 K/uL (130-400); RED BLOOD CELL COUNT(AUTO) 5.43 MIL/uL (4.50-6.20); RED CELL DISTRIBUTION WIDTH 14.6 % (11.0-15.5); WHITE BLOOD COUNT (AUTO) 9.6 K/uL (4.8-10.8)
[2019-02-12] MEDS ORDERED: MORPHINE SULFATE 4 MG/1ML SYG ONE (16:03)
[2019-02-12 16:11] LABS: CREATININE 1.2 mg/dL (0.5-1.5); POTASSIUM 4.4 mmol/L (3.5-5.1)
[2019-02-12 16:22] LABS: ALBUMIN 3.5 g/dL (3.5-5.0); BILIRUBIN,DIRECT 0.1 mg/dL (0.0-0.3); BILIRUBIN,TOTAL 0.4 mg/dL (0.2-1.0); THYROID STIMULATING HORMONE 1.43 uIU/mL (0.36-3.74); TOTAL PROTEIN, SERUM 6.6 g/dL (6.0-8.3)
[2019-02-12] MEDS: 1/2 NORMAL SALINE 1,000 ML IV SCH ×2 (17:47→22:40)
[2019-02-12] MEDS: HUMALOG PO SS1 SQ SCH ×2 (17:57→21:00)
[2019-02-12] MEDS ORDERED: RIVA10TA PO (18:59)
[2019-02-12] MEDS ORDERED: METR500T PO (18:59)
[2019-02-12] MEDS ORDERED: IPRA3AMP24 IH (18:59)
[2019-02-12] MEDS ORDERED: SULF10VI2 IV (18:59)
[2019-02-12 20:00] VITALS: BP 132/99
[2019-02-12] MEDS: METRONIDAZOLE 500MG/100ML BAG 100 ML IVPB SCH (20:21)
[2019-02-12] MEDS: ONDANSETRON HCL 4 MG/2 ML VIAL IVP PRN (20:24)
--- NOTE | 2019-02-12 20:24 | NUR ---
NAUSEA Pt medicated with Zofran for nausea.
[2019-02-12] MEDS ORDERED: FAMOTIDINE 20MG TAB 20 MG TAB PO SCH (21:00)
[2019-02-12] MEDS: MORPHINE SULFATE 4 MG/1ML SYG IVP PRN (22:08)
--- NOTE | 2019-02-12 22:08 | NUR ---
PAIN Pt medicated with Morphine for c/o of severe pain all over.
--- NOTE | 2019-02-12 23:26 | NUR ---
BLOOD SUGAR Pt said he feels like his blood sugar is low,spot checked blood sugar 80.Pt resting quietly,denies pain or nausea this time.
[2019-02-13] VITALS (7 sets, daily range): BP systolic 127–146; BP diastolic 80–91
[2019-02-13] MEDS: 1/2 NORMAL SALINE 1,000 ML IV SCH ×3 (03:17→20:36)
[2019-02-13] MEDS: METRONIDAZOLE 500MG/100ML BAG 100 ML IVPB SCH ×3 (04:26→20:36)
[2019-02-13 05:13] LABS: MEAN CORPUSCULAR HEMOGLOBIN 28.5 pg (27.0-33.0); MEAN CORPUSCULAR HGB CONC 33.6 g/dL (32.0-36.0); MEAN CORPUSCULAR VOLUME 84.7 fL (79-99); PLATELET COUNT (AUTO) 191 K/uL (130-400); RED BLOOD CELL COUNT(AUTO) 5.31 MIL/uL (4.50-6.20); RED CELL DISTRIBUTION WIDTH 14.6 % (11.0-15.5); WHITE BLOOD COUNT (AUTO) 8.7 K/uL (4.8-10.8)
[2019-02-13 05:30] LABS: ALBUMIN 3.2 g/dL (3.5-5.0); BILIRUBIN,DIRECT 0.1 mg/dL (0.0-0.3); BILIRUBIN,TOTAL 0.4 mg/dL (0.2-1.0); CREATININE 1.2 mg/dL (0.5-1.5); TOTAL PROTEIN, SERUM 6.9 g/dL (6.0-8.3)
[2019-02-13] MEDS: HUMALOG PO SS1 SQ SCH ×4 (06:32→20:37)
[2019-02-13] MEDS ORDERED: NITROGLYCERIN 0.4 MG SL TAB SL PRN (08:00)
[2019-02-13] MEDS ORDERED: TRAMADOL HCL 50 MG TABLET PO PRN (08:00)
[2019-02-13] MEDS ORDERED: ONDANSETRON HCL 4 MG SL PRN (08:00)
[2019-02-13] MEDS ORDERED: PHARMACY COMMUNICATION MISC SCH (08:45)
[2019-02-13] MEDS: [UNRECOGNIZED DRUG - OTHER] SQ SCH (09:00)
[2019-02-13] MEDS ORDERED: TRIMETHOPRIM IV SCH (09:00)
[2019-02-13] MEDS ORDERED: SULFAMETHOXAZOLE IV SCH (09:00)
[2019-02-13] MEDS ORDERED: [UNRECOGNIZED DRUG - OTHER] IV SCH (09:00)
[2019-02-13] MEDS: INSULIN DEGLUDEC SQ SCH (09:00)
[2019-02-13] MEDS ORDERED: INSULIN DEGLUDEC 80 UNIT SQ SCH (09:00)
[2019-02-13] MEDS ORDERED: NON-FORMULARY MEDICATION 1 EACH (Pantoprazole Sodium (Protonix) 40 MG) PO SCH (09:00)
[2019-02-13] MEDS ORDERED: METRONIDAZOLE 500 MG PO SCH (09:00)
[2019-02-13] MEDS ORDERED: LATANOPROST 2.5 ML DROPS OD SCH (09:00)
[2019-02-13] MEDS: LACTULOSE 20 GM/30 ML UDCUP PO PRN ×2 (11:18→20:36)
[2019-02-13] MEDS: RIVAROXABAN 10 MG TABLET PO SCH (11:20)
[2019-02-13] MEDS: FAMOTIDINE 20MG TAB 20 MG TAB PO SCH (11:20)
[2019-02-13] MEDS: ASPIRIN 81MG TAB.CHEW PO SCH (11:20)
[2019-02-13] MEDS: BUSPIRONE HCL 5 MG TABLET PO SCH (11:20)
[2019-02-13] MEDS: LISINOPRIL 2.5 MG TABLET PO SCH (11:20)
[2019-02-13] MEDS: Pravastatin Sodium 40 MG PO SCH (11:20)
[2019-02-13] MEDS: METOPROLOL TARTRATE 25 MG TAB PO SCH ×2 (11:21→20:36)
[2019-02-13] MEDS: CITALOPRAM 20 MG TABLET PO SCH (11:21)
[2019-02-13] MEDS: MORPHINE SULFATE 4 MG/1ML SYG IVP PRN (11:39)
[2019-02-13] MEDS: ONDANSETRON HCL 4 MG/2 ML VIAL IVP PRN ×3 (11:39→23:00)
[2019-02-13] MEDS: CEFTRIAXONE SODIUM 1 GM IVP SCH (14:36)
[2019-02-13] MEDS: SULFAMETHOX-TMP DS 800/160 TAB PO SCH ×2 (20:36→20:37)
--- NOTE | 2019-02-13 23:12 | NUR ---
NAUSEA Pt medicated with Zofran for c/o of nausea.
[2019-02-14] MEDS: MORPHINE SULFATE 4 MG/1ML SYG IVP PRN ×3 (00:38→19:57)
--- NOTE | 2019-02-14 00:38 | NUR ---
PAIN Pt shaking,complaining of generalized pain,wants Morphine.Medicated as per bertin ramos.
--- NOTE | 2019-02-14 01:38 | NUR ---
MED EFFECT Pt calm,resting quietly in bed,eyes closed.Resp even and unlabored.
[2019-02-14 04:00] VITALS: BP 108/74
[2019-02-14] MEDS: 1/2 NORMAL SALINE 1,000 ML IV SCH ×4 (04:36→21:20)
[2019-02-14] MEDS: METRONIDAZOLE 500MG/100ML BAG 100 ML IVPB SCH ×3 (04:36→19:56)
[2019-02-14 05:43] LABS: HEMATOCRIT 45.7 % (42-54); MEAN CORPUSCULAR HGB CONC 33.3 g/dL (32.0-36.0); MEAN CORPUSCULAR VOLUME 84.2 fL (79-99); PLATELET COUNT (AUTO) 227 K/uL (130-400); RED BLOOD CELL COUNT(AUTO) 5.43 MIL/uL (4.50-6.20); RED CELL DISTRIBUTION WIDTH 14.5 % (11.0-15.5); WHITE BLOOD COUNT (AUTO) 8.5 K/uL (4.8-10.8)
[2019-02-14 05:56] LABS: CREATININE 1.1 mg/dL (0.5-1.5); POTASSIUM 4.5 mmol/L (3.5-5.1)
[2019-02-14] MEDS: HUMALOG PO SS1 SQ SCH ×4 (06:19→21:00)
[2019-02-14 08:00] VITALS: BP 131/80
[2019-02-14] MEDS: [UNRECOGNIZED DRUG - OTHER] SQ SCH (09:00)
[2019-02-14] MEDS: INSULIN DEGLUDEC SQ SCH (09:00)
[2019-02-14] MEDS: Pravastatin Sodium 40 MG PO SCH (09:00)
[2019-02-14] MEDS: ONDANSETRON HCL 4 MG/2 ML VIAL IVP PRN ×2 (09:33→19:56)
[2019-02-14] MEDS: METOPROLOL TARTRATE 25 MG TAB PO SCH ×2 (09:36→19:56)
[2019-02-14] MEDS: ASPIRIN 81MG TAB.CHEW PO SCH (09:36)
[2019-02-14] MEDS: RIVAROXABAN 10 MG TABLET PO SCH (09:37)
[2019-02-14] MEDS: SULFAMETHOX-TMP DS 800/160 TAB PO SCH ×2 (09:37→19:56)
[2019-02-14] MEDS: BUSPIRONE HCL 5 MG TABLET PO SCH (09:37)
[2019-02-14] MEDS: FAMOTIDINE 20MG TAB 20 MG TAB PO SCH (09:37)
[2019-02-14] MEDS: CITALOPRAM 20 MG TABLET PO SCH (09:37)
[2019-02-14] MEDS: LISINOPRIL 2.5 MG TABLET PO SCH (09:38)
--- NOTE | 2019-02-14 11:45 | NUR ---
CALL RECEIVED FROM SABAS, THE CLINICAL [employer] OPERATOR OF DR ESTRADA/RASHIDA REGARDING THE CONSULT. REQUESTED INFORMATION ABOUT THE PATIENT WAS RELAYED TO HER.
[2019-02-14 12:00] VITALS: BP 138/85
[2019-02-14] MEDS: CEFTRIAXONE SODIUM 1 GM IVP SCH (15:33)
[2019-02-14 16:00] VITALS: BP 101/75
[2019-02-14 19:52] VITALS: BP 125/82
[2019-02-14] MEDS: LATANOPROST 2.5 ML DROPS OD SCH (20:04)
[2019-02-14 23:32] VITALS: BP 104/68
[2019-02-15 03:48] VITALS: BP 146/90
[2019-02-15] MEDS: ONDANSETRON HCL 4 MG/2 ML VIAL IVP PRN ×2 (03:53→09:12)
[2019-02-15] MEDS: 1/2 NORMAL SALINE 1,000 ML IV SCH ×3 (03:54→17:20)
[2019-02-15] MEDS: MORPHINE SULFATE 4 MG/1ML SYG IVP PRN ×4 (03:54→22:50)
[2019-02-15] MEDS: METRONIDAZOLE 500MG/100ML BAG 100 ML IVPB SCH ×3 (05:21→20:44)
[2019-02-15 05:36] LABS: MEAN CORPUSCULAR HEMOGLOBIN 28.9 pg (27.0-33.0); MEAN CORPUSCULAR VOLUME 84.9 fL (79-99); NUCLEATED RED BLOOD CELLS 0.1 % (0.0-0.19); PLATELET COUNT (AUTO) 208 K/uL (130-400); RED BLOOD CELL COUNT(AUTO) 5.42 MIL/uL (4.50-6.20); RED CELL DISTRIBUTION WIDTH 14.3 % (11.0-15.5); WHITE BLOOD COUNT (AUTO) 9.5 K/uL (4.8-10.8)
[2019-02-15 05:44] LABS: CREATININE 1.1 mg/dL (0.5-1.5); POTASSIUM 4.1 mmol/L (3.5-5.1)
[2019-02-15 06:17] LABS: EOSINOPHILS % (MANUAL) 4 % (1-6); LYMPHOCYTES % (MANUAL) 18 % (22-44); MAN.DIFF COMMENT-IMPRESSION MANUAL DIFFERENTIAL; MONOCYTES % (MANUAL) 3 % (2-9); PLATELET MORPHOLOGY COMMENT ADEQUATE; REACTIVE LYMPHOCYTES 2 % (0-0); SEGMENTED NEUTROPHILS % 73 % (40-70)
[2019-02-15] MEDS: HUMALOG PO SS1 SQ SCH ×4 (06:25→20:50)
[2019-02-15 08:00] VITALS: BP 134/79
[2019-02-15] MEDS: INSULIN DEGLUDEC SQ SCH (09:00)
[2019-02-15] MEDS: [UNRECOGNIZED DRUG - OTHER] SQ SCH (09:00)
[2019-02-15] MEDS: BUSPIRONE HCL 5 MG TABLET PO SCH (09:11)
[2019-02-15] MEDS: FAMOTIDINE 20MG TAB 20 MG TAB PO SCH (09:14)
[2019-02-15] MEDS: SULFAMETHOX-TMP DS 800/160 TAB PO SCH ×2 (09:14→20:44)
[2019-02-15] MEDS: LISINOPRIL 2.5 MG TABLET PO SCH (09:15)
[2019-02-15] MEDS: METOPROLOL TARTRATE 25 MG TAB PO SCH ×2 (09:15→20:44)
[2019-02-15] MEDS: RIVAROXABAN 10 MG TABLET PO SCH (09:15)
[2019-02-15] MEDS: CITALOPRAM 20 MG TABLET PO SCH (09:16)
[2019-02-15] MEDS: ASPIRIN 81MG TAB.CHEW PO SCH (09:16)
[2019-02-15] MEDS: Pravastatin Sodium 40 MG PO SCH (09:17)
--- NOTE | 2019-02-15 11:17 | NUR ---
DC PLAN VISITED WITH PATIENT. PATIENT LIVES WITH MOTHER. INDEPENDENT ABLE TO PERFORM ADL'S. PATIENT HAS NO SERVICES OR DME'S. FEELS SAFE TO RETURN HOME. Addendum: 02/15/19 at 1118 by YANE DELGADILLO RN CM Amended: Links added.
[2019-02-15 12:00] VITALS: BP 126/79
--- NOTE | 2019-02-15 13:04 | NUR ---
PATIENT WAS UNABLE TO TOLERATE THE CLEAR LIQUID DIET AND EXPERIENCE EMESIS AFTER BREAKFAST. CALL SENT TO DR PEREZ TO NOTIFY HIM OF THE PATIENT STATUS. PENDING CALL BACK.
--- NOTE | 2019-02-15 15:00 | NUR ---
DR PEREZ CALLED BACK AND HE WAS NOTIFIED OF THE PATIENT STATUS WITH EMESIS EPISODE. NEW ORDER WAS RECEIVED AND CARRIED OUT.
[2019-02-15] MEDS: CEFTRIAXONE SODIUM 1 GM IVP SCH (15:30)
[2019-02-15] MEDS: METOCLOPRAMIDE 10 MG/2 ML VIAL IVP SCH ×2 (15:30→22:48)
[2019-02-15 16:00] VITALS: BP 130/84
[2019-02-15 20:29] VITALS: BP 118/75
[2019-02-15] MEDS: LATANOPROST 2.5 ML DROPS OD SCH (20:53)
[2019-02-16] VITALS: BP 106/72
[2019-02-16 03:59] VITALS: BP 118/75
[2019-02-16] MEDS: METRONIDAZOLE 500MG/100ML BAG 100 ML IVPB SCH ×3 (05:57→19:29)
[2019-02-16] MEDS: METOCLOPRAMIDE 10 MG/2 ML VIAL IVP SCH ×3 (05:57→20:17)
[2019-02-16] MEDS: 1/2 NORMAL SALINE 1,000 ML IV SCH ×4 (05:57→20:07)
[2019-02-16] MEDS: MORPHINE SULFATE 4 MG/1ML SYG IVP PRN ×3 (06:02→22:14)
[2019-02-16] MEDS: HUMALOG PO SS1 SQ SCH ×4 (06:03→20:17)
[2019-02-16 08:00] VITALS: BP 117/78
[2019-02-16] MEDS ORDERED: Dulaglutide (Trulicity) 1.5 MG SQ SCH (09:00)
[2019-02-16] MEDS: [UNRECOGNIZED DRUG - OTHER] SQ SCH (09:00)
[2019-02-16] MEDS: INSULIN DEGLUDEC SQ SCH (09:00)
[2019-02-16] MEDS: BUSPIRONE HCL 5 MG TABLET PO SCH (09:43)
[2019-02-16] MEDS: METOPROLOL TARTRATE 25 MG TAB PO SCH ×2 (09:43→19:27)
[2019-02-16] MEDS: CITALOPRAM 20 MG TABLET PO SCH (09:43)
[2019-02-16] MEDS: LISINOPRIL 2.5 MG TABLET PO SCH (09:43)
[2019-02-16] MEDS: ASPIRIN 81MG TAB.CHEW PO SCH (09:43)
[2019-02-16] MEDS: SULFAMETHOX-TMP DS 800/160 TAB PO SCH ×2 (09:43→19:27)
[2019-02-16] MEDS: FAMOTIDINE 20MG TAB 20 MG TAB PO SCH (09:43)
[2019-02-16] MEDS: RIVAROXABAN 10 MG TABLET PO SCH (09:43)
[2019-02-16] MEDS: Pravastatin Sodium 40 MG PO SCH (09:44)
[2019-02-16 12:00] VITALS: BP 118/84
[2019-02-16] MEDS: CEFTRIAXONE SODIUM 1 GM IVP SCH (14:30)
[2019-02-16 16:00] VITALS: BP 115/63
[2019-02-16 19:05] VITALS: BP 115/70
[2019-02-16] MEDS: LATANOPROST 2.5 ML DROPS OD SCH (19:31)
[2019-02-17 00:06] VITALS: BP 108/72
[2019-02-17] MEDS: 1/2 NORMAL SALINE 1,000 ML IV SCH (02:58)
[2019-02-17 04:03] VITALS: BP 97/67
[2019-02-17] MEDS: METRONIDAZOLE 500MG/100ML BAG 100 ML IVPB SCH (04:28)
[2019-02-17 05:05] LABS: BASOPHILS % (AUTO) 0.5 % (0.0-5.0); EOSINOPHILS % (AUTO) 0.8 % (0.0-8.0); HEMATOCRIT 42.5 % (42-54); LYMPHOCYTES % (AUTO) 15.8 % (21.0-51.0); MEAN CORPUSCULAR HEMOGLOBIN 28.8 pg (27.0-33.0); MEAN CORPUSCULAR HGB CONC 34.1 g/dL (32.0-36.0); MEAN CORPUSCULAR VOLUME 84.5 fL (79-99); MONOCYTES % (AUTO) 6.8 % (3.0-13.0); NEUTROPHILS % (AUTO) 76.1 % (40.0-77.0); PLATELET COUNT (AUTO) 196 K/uL (130-400); RED BLOOD CELL COUNT(AUTO) 5.02 MIL/uL (4.50-6.20); RED CELL DISTRIBUTION WIDTH 14.7 % (11.0-15.5); WHITE BLOOD COUNT (AUTO) 7.7 K/uL (4.8-10.8)
[2019-02-17 05:28] LABS: ALBUMIN 3.1 g/dL (3.5-5.0); BILIRUBIN,TOTAL 0.2 mg/dL (0.2-1.0); CREATININE 1.2 mg/dL (0.5-1.5); POTASSIUM 4.2 mmol/L (3.5-5.1); TOTAL PROTEIN, SERUM 6.4 g/dL (6.0-8.3)
[2019-02-17] MEDS: METOCLOPRAMIDE 10 MG/2 ML VIAL IVP SCH (05:53)
[2019-02-17] MEDS: HUMALOG PO SS1 SQ SCH ×2 (06:23→11:38)
[2019-02-17 08:00] VITALS: BP 120/82
[2019-02-17] MEDS: Pravastatin Sodium 40 MG PO SCH (09:00)
[2019-02-17] MEDS: INSULIN DEGLUDEC SQ SCH (09:00)
[2019-02-17] MEDS: [UNRECOGNIZED DRUG - OTHER] SQ SCH (09:00)
[2019-02-17] MEDS: FAMOTIDINE 20MG TAB 20 MG TAB PO SCH (10:04)
[2019-02-17] MEDS: CITALOPRAM 20 MG TABLET PO SCH (10:04)
[2019-02-17] MEDS: SULFAMETHOX-TMP DS 800/160 TAB PO SCH (10:04)
[2019-02-17] MEDS: RIVAROXABAN 10 MG TABLET PO SCH (10:05)
[2019-02-17] MEDS: BUSPIRONE HCL 5 MG TABLET PO SCH (10:05)
[2019-02-17] MEDS: LISINOPRIL 2.5 MG TABLET PO SCH (10:05)
[2019-02-17] MEDS: ASPIRIN 81MG TAB.CHEW PO SCH (10:05)
[2019-02-17] MEDS: METOPROLOL TARTRATE 25 MG TAB PO SCH (10:07)
[2019-02-17 11:47] VITALS: BP 127/68
== END 2019-02-17 12:20 | disposition home or self-care (01) | DRG 48 ==
LOC: EDH 14:50 → OBSVTOIN 14:51 → LDH 14:51 → EDHIP 15:35 → 3AH 16:27
PROVIDERS: ADMIT Internal Medicine; ATTEND Internal Medicine
DX: E10.43 Type 1 diabetes mellitus with diabetic autonomic (poly)neuropathy (principal); E10.22 Type 1 diabetes mellitus with diabetic chronic kidney disease; K31.84 Gastroparesis; E10.65 Type 1 diabetes mellitus with hyperglycemia; E86.0 Dehydration; K59.00 Constipation, unspecified; R19.7 Diarrhea, unspecified; E78.5 Hyperlipidemia, unspecified; E10.319 Type 1 diabetes mellitus with unspecified diabetic retinopathy without macular edema; H40.9 Unspecified glaucoma; I12.9 Hypertensive chronic kidney disease with stage 1 through stage 4 chronic kidney disease, or unspecified chronic kidney disease; I25.10 Atherosclerotic heart disease of native coronary artery without angina pectoris; K21.9 Gastro-esophageal reflux disease without esophagitis; N18.9 Chronic kidney disease, unspecified; F32.9 Major depressive disorder, single episode, unspecified; Z79.4 Long term (current) use of insulin
CPT/HCPCS: 36415; 74018; 74176; 80048; 80053; 80061; 80076; 82150; 82947; 82948; 83690; 84443; 85025; 85027; A4218; G0378; J0696; J2270; J2405; J2765; J3490; Q0163

== ENCOUNTER 2019-03-05 20:05 | Emergency (ER) | payer MEDICAID ==
[~2019-03-05 20:05] MED LIST changes: +METR500T PO; -PANT40SU PO; +RIVA10TA PO; +SULF10VI2 IV
[2019-03-05] MEDS ORDERED: LIDOCAINE HCL 2% VISCOUS 15 ML UDCUP ONE ×2 (21:09→22:10)
[2019-03-05] MEDS ORDERED: SODIUM CHLORIDE 0.9% 1000ML 1,000 ML IV ONE ×2 (21:16→22:14)
[2019-03-05 21:30] LABS: BASOPHILS % (AUTO) 1.1 % (0.0-5.0); EOSINOPHILS % (AUTO) 0.6 % (0.0-8.0); HEMATOCRIT 44.8 % (42-54); LYMPHOCYTES % (AUTO) 22.5 % (21.0-51.0); MEAN CORPUSCULAR HEMOGLOBIN 28.4 pg (27.0-33.0); MEAN CORPUSCULAR HGB CONC 34.1 g/dL (32.0-36.0); MEAN CORPUSCULAR VOLUME 83.2 fL (79-99); MONOCYTES % (AUTO) 5.1 % (3.0-13.0); NEUTROPHILS % (AUTO) 70.7 % (40.0-77.0); NUCLEATED RED BLOOD CELLS 0.1 % (0.0-0.19); PLATELET COUNT (AUTO) 179 K/uL (130-400); RED BLOOD CELL COUNT(AUTO) 5.38 MIL/uL (4.50-6.20); RED CELL DISTRIBUTION WIDTH 14.4 % (11.0-15.5); WHITE BLOOD COUNT (AUTO) 8.3 K/uL (4.8-10.8)
[2019-03-05 21:46] LABS: ALBUMIN 3.4 g/dL (3.5-5.0); BILIRUBIN,TOTAL 0.3 mg/dL (0.2-1.0); CREATININE 1.4 mg/dL (0.5-1.5); POTASSIUM 4.5 mmol/L (3.5-5.1); TOTAL PROTEIN, SERUM 7.1 g/dL (6.0-8.3)
[2019-03-05] MEDS ORDERED: HYDROCORTISONE 25 MG SUPPOSITORY PR ONE (22:10)
[2019-03-05] MEDS ORDERED: INSULIN HUMULIN R 100 UNIT/ML 3ML ONE (22:28)
[2019-03-06] MEDS ORDERED: LIDOCAINE HCL 2% VISCOUS 15 ML UDCUP ONE (00:28)
== END 2019-03-06 00:48 | disposition home or self-care (01) ==
LOC: EDH 20:05
DX: K62.89 Other specified diseases of anus and rectum (principal); E10.9 Type 1 diabetes mellitus without complications; R19.7 Diarrhea, unspecified; I10 Essential (primary) hypertension; I25.2 Old myocardial infarction; I25.10 Atherosclerotic heart disease of native coronary artery without angina pectoris; Z95.1 Presence of aortocoronary bypass graft; Z98.890 Other specified postprocedural states; Z88.5 Allergy status to narcotic agent; Z88.1 Allergy status to other antibiotic agents; Z79.4 Long term (current) use of insulin
CPT/HCPCS: 36415; 80053; 82270; 82948; 85025; 96361; 96374; 99284; J1815; J7030 ×2

== ENCOUNTER 2019-04-06 00:18 | Observation (INO) | payer MEDICAID ==
[~2019-04-06] VITALS: Ht 172.7 cm; Wt 87.1 kg
[2019-04-06] MEDS ORDERED: NITROGLYCERIN 0.4 MG SL TAB SL ONE (01:03)
[2019-04-06 01:33] LABS: BASOPHILS % (AUTO) 0.8 % (0.0-5.0); MEAN CORPUSCULAR HEMOGLOBIN 28.7 pg (27.0-33.0); MEAN CORPUSCULAR HGB CONC 34.1 g/dL (32.0-36.0); MEAN CORPUSCULAR VOLUME 84.1 fL (79-99); MONOCYTES % (AUTO) 7.9 % (3.0-13.0); NEUTROPHILS % (AUTO) 64.3 % (40.0-77.0); NUCLEATED RED BLOOD CELLS 0.1 % (0.0-0.19); PLATELET COUNT (AUTO) 194 K/uL (130-400); RED BLOOD CELL COUNT(AUTO) 5.12 MIL/uL (4.50-6.20); RED CELL DISTRIBUTION WIDTH 15.1 % (11.0-15.5); WHITE BLOOD COUNT (AUTO) 9.5 K/uL (4.8-10.8)
[2019-04-06 01:52] LABS: POTASSIUM 3.9 mmol/L (3.5-5.1)
[2019-04-06 02:03] LABS: INR 0.9 (0.85-1.15); PARTIAL THROMBOPLASTIN TIME 26.6 SEC (26.3-35.5); PROTHROMBIN TIME 9.5 SEC (9.6-11.6)
[2019-04-06 02:04] LABS: ALBUMIN 3.3 g/dL (3.5-5.0); BILIRUBIN,TOTAL 0.3 mg/dL (0.2-1.0); TOTAL PROTEIN, SERUM 6.3 g/dL (6.0-8.3)
--- NOTE | 2019-04-06 04:25 | NUR ---
ADMISSION NOTE Admitted to floor via W/C from ER. Fully awake , responsive but feels weak. Assessment done. VS checked and recorded. ( see Intervention flow sheet). Plan of care initiated. Hooked to telemetry at bedside with NSR 60's. Verbalized pain is manageable at this time. Oriented to room and use of call light. Plans and procedures explained.Verbalized understanding.No apparent distress noted. Needs attended and cared for.
[2019-04-06 04:29] VITALS: BP 127/78
[2019-04-06] MEDS ORDERED: ONDA8TAB12 PO (05:08)
[2019-04-06] MEDS ORDERED: LISI40TA4 PO (05:08)
[2019-04-06] MEDS ORDERED: PANT40TA25 PO (05:08)
[2019-04-06] MEDS ORDERED: ALBU90AE IH (05:08)
[2019-04-06] MEDS ORDERED: INSU100C6 SQ (05:08)
[2019-04-06] MEDS ORDERED: TRAM50TA4 PO (05:08)
[2019-04-06] MEDS ORDERED: INSU200I4 SQ (05:08)
--- NOTE | 2019-04-06 06:35 | NUR ---
RASHEEDA MENDEZ rounded: Came in to visit and talked to the patient. Orders made and carried out. (See Nursing Communication)
[2019-04-06] MEDS ORDERED: GLUCAGON 1MG KIT 1 MG ML IM PRN (06:45)
[2019-04-06] MEDS ORDERED: DEXTROSE 50%-WATER 50 ML DISP.SYRIN IV PRN (06:45)
[2019-04-06 06:59] LABS: CREATINE KINASE, TOTAL 51 U/L (21-232); MYOGLOBIN 41 ng/mL (10-92); TROPONIN I < 0.04 ng/mL (0.00-0.06)
--- NOTE | 2019-04-06 07:57 | NUR ---
DR PEREZ ROUNDED ON PATENT AND ORDERERS RECEIVE FOR CARDIO CONSULT
[2019-04-06 08:00] VITALS: BP 136/85
[2019-04-06] MEDS: LISINOPRIL 40 MG TABLET PO SCH (08:08)
[2019-04-06] MEDS: CLOPIDOGREL BISULFATE 75 MG TAB PO SCH (08:08)
[2019-04-06] MEDS: CITALOPRAM 20 MG TABLET PO SCH (08:09)
[2019-04-06] MEDS: BUSPIRONE HCL 5 MG TABLET PO SCH (08:09)
[2019-04-06] MEDS: METOPROLOL TARTRATE 25 MG TAB PO SCH ×2 (08:09→21:05)
[2019-04-06] MEDS: ASPIRIN 81 MG EC TAB PO SCH (08:09)
[2019-04-06] MEDS: FAMOTIDINE 20MG TAB 20 MG TAB PO SCH (08:09)
[2019-04-06] MEDS: ATORVASTATIN CALCIUM 10 MG TABLET PO SCH (08:09)
[2019-04-06] MEDS: PANTOPRAZOLE SODIUM 40 MG TABLET.DR PO SCH (08:09)
[2019-04-06] MEDS: TRAMADOL HCL 50 MG TABLET PO PRN ×2 (08:10→21:10)
[2019-04-06] MEDS: INSULIN HUMULIN R 100 UNIT/ML 3ML SQ SCH ×4 (08:15→21:13)
[2019-04-06] MEDS ORDERED: LATANOPROST 2.5 ML DROPS OD SCH ×2 (09:00→21:00)
--- NOTE | 2019-04-06 11:08 | NUR ---
YASMIN Dhaliwal met with pt who is on SSD since 2003, lives with his mother Chary Joy. Pt reports he is independent of all ADLS, no DME or HH services. Pt of Dr Nolasco uses [facility]. Denies dx needs, [place] Addendum: 04/06/19 at 1113 by MATT ARMENDARIZ SS Amended: Links added.
[2019-04-06 11:55] VITALS: BP 126/76
[2019-04-06 12:53] LABS: CREATINE KINASE, TOTAL 52 U/L (21-232); MYOGLOBIN 41 ng/mL (10-92); TROPONIN I < 0.04 ng/mL (0.00-0.06)
[2019-04-06 15:55] VITALS: BP 120/76
[2019-04-06 19:53] VITALS: BP 112/73
[2019-04-06] MEDS ORDERED: BACL10TA PO (20:58)
[2019-04-06] MEDS ORDERED: BACLOFEN 10 MG TABLET PO SCH (21:00)
[2019-04-06] MEDS ORDERED: POTA99TA25 PO (21:03)
[2019-04-06] MEDS ORDERED: ONDANSETRON ODT 4 MG TAB PO PRN (21:15)
[2019-04-06] MEDS ORDERED: NITROGLYCERIN 0.4 MG SL TAB SL PRN (21:15)
[2019-04-06] MEDS ORDERED: ALBUTEROL SULFATE 0.083% 2.5 MG/3 ML INH IH PRN (21:15)
[2019-04-06 23:50] VITALS: BP 118/73
[2019-04-07 04:00] VITALS: BP 124/85
[2019-04-07] MEDS: INSULIN HUMULIN R 100 UNIT/ML 3ML SQ SCH ×2 (07:30→14:28)
[2019-04-07 08:00] VITALS: BP 138/80
[2019-04-07] MEDS: ASPIRIN 81 MG EC TAB PO SCH (09:37)
[2019-04-07] MEDS: LISINOPRIL 40 MG TABLET PO SCH (09:38)
[2019-04-07] MEDS: ATORVASTATIN CALCIUM 10 MG TABLET PO SCH (09:38)
[2019-04-07] MEDS: FAMOTIDINE 20MG TAB 20 MG TAB PO SCH (09:38)
[2019-04-07] MEDS: CLOPIDOGREL BISULFATE 75 MG TAB PO SCH (09:38)
[2019-04-07] MEDS: METOPROLOL TARTRATE 25 MG TAB PO SCH (09:38)
[2019-04-07] MEDS: BUSPIRONE HCL 5 MG TABLET PO SCH (09:38)
[2019-04-07] MEDS: PANTOPRAZOLE SODIUM 40 MG TABLET.DR PO SCH (09:38)
[2019-04-07] MEDS: CITALOPRAM 20 MG TABLET PO SCH (09:38)
[2019-04-07 12:00] VITALS: BP 119/73
[2019-04-07] MEDS ORDERED: POTASSIUM GLUCONATE 600 MG PO SCH (21:00)
== END 2019-04-07 14:40 | disposition home or self-care (01) ==
LOC: EDH 00:18 → EDHIP 00:19 → 4CH 04:29
PROVIDERS: ADMIT Internal Medicine; ATTEND Internal Medicine
DX: R07.89 Other chest pain (principal); I25.10 Atherosclerotic heart disease of native coronary artery without angina pectoris; E11.22 Type 2 diabetes mellitus with diabetic chronic kidney disease; E11.43 Type 2 diabetes mellitus with diabetic autonomic (poly)neuropathy; E11.51 Type 2 diabetes mellitus with diabetic peripheral angiopathy without gangrene; I12.9 Hypertensive chronic kidney disease with stage 1 through stage 4 chronic kidney disease, or unspecified chronic kidney disease; N18.9 Chronic kidney disease, unspecified; G89.4 Chronic pain syndrome; E78.5 Hyperlipidemia, unspecified; I25.2 Old myocardial infarction; G47.33 Obstructive sleep apnea (adult) (pediatric); K21.9 Gastro-esophageal reflux disease without esophagitis; K31.84 Gastroparesis; Z91.19 Patient's noncompliance with other medical treatment and regimen; Z95.1 Presence of aortocoronary bypass graft; Z88.8 Allergy status to other drugs, medicaments and biological substances; Z79.899 Other long term (current) drug therapy
CPT/HCPCS: 36415; 71045; 80053; 82550 ×3; 82948 ×6; 83874 ×3; 83880; 84484 ×3; 85025; 85610; 85730; 93005 ×3; 94664; 96372 ×2; 99284; G0378 ×36; J1815 ×5

== ENCOUNTER 2019-05-01 17:23 | Emergency (ER) | payer MEDICAID ==
[~2019-05-01 17:23] MED LIST changes: +ALBU90AE IH; +BACL10TA PO; -INSNOV SQ; +INSU100C6 SQ; -INSU100V37 SQ; +INSU200I4 SQ; -LISI2.5T2 PO; +LISI40TA4 PO; -METR500T PO; -ONDA4SOL2 SL; +ONDA8TAB12 PO; +PANT40TA25 PO; +POTA99TA25 PO; -RIVA10TA PO; -SULF10VI2 IV
[2019-05-01] MEDS ORDERED: ONDANSETRON HCL 4 MG/2 ML VIAL ONE (17:55)
[2019-05-01] MEDS ORDERED: SODIUM CHLORIDE 0.9% 1000ML 1,000 ML IV ONE (17:56)
[2019-05-01] MEDS ORDERED: PROCHLORPERAZINE EDISYLATE 10 MG/2 ML VIAL ONE (17:56)
[2019-05-01 18:06] LABS: BASOPHILS % (AUTO) 0.4 % (0.0-5.0); EOSINOPHILS % (AUTO) 0.3 % (0.0-8.0); HEMATOCRIT 46.5 % (42-54); LYMPHOCYTES % (AUTO) 15.7 % (21.0-51.0); MEAN CORPUSCULAR HEMOGLOBIN 28.1 pg (27.0-33.0); MEAN CORPUSCULAR HGB CONC 33.5 g/dL (32.0-36.0); MEAN CORPUSCULAR VOLUME 83.8 fL (79-99); MONOCYTES % (AUTO) 6.4 % (3.0-13.0); NEUTROPHILS % (AUTO) 77.2 % (40.0-77.0); PLATELET COUNT (AUTO) 190 K/uL (130-400); RED BLOOD CELL COUNT(AUTO) 5.54 MIL/uL (4.50-6.20); RED CELL DISTRIBUTION WIDTH 14.5 % (11.0-15.5)
[2019-05-01 18:17] LABS: CREATININE 1.2 mg/dL (0.5-1.5); POTASSIUM 4.2 mmol/L (3.5-5.1)
[2019-05-01] MEDS ORDERED: LORAZEPAM 2 MG/ML 1 ML VIAL ONE (18:19)
[2019-05-01] MEDS ORDERED: INSULIN HUMULIN R 100 UNIT/ML 3ML ONE (18:43)
== END 2019-05-01 19:57 | disposition home or self-care (01) ==
LOC: EDH 17:23
DX: E11.65 Type 2 diabetes mellitus with hyperglycemia (principal); R51 Headache; I10 Essential (primary) hypertension; I25.2 Old myocardial infarction; E78.5 Hyperlipidemia, unspecified; G89.29 Other chronic pain; I25.10 Atherosclerotic heart disease of native coronary artery without angina pectoris; Z79.4 Long term (current) use of insulin; Z95.1 Presence of aortocoronary bypass graft; Z98.890 Other specified postprocedural states; Z88.5 Allergy status to narcotic agent; Z88.8 Allergy status to other drugs, medicaments and biological substances
CPT/HCPCS: 36415; 70450; 80048; 82948; 85025; 96361; 96374; 96375; 99285; J0780; J1815; J2060; J2405; J7030

== ENCOUNTER 2019-06-15 16:09 | Observation (INO) | payer MEDICAID ==
[~2019-06-15] VITALS: Ht 172.7 cm; Wt 87.3 kg
[2019-06-15 16:50] LABS: BASOPHILS % (AUTO) 0.6 % (0.0-5.0); EOSINOPHILS % (AUTO) 0.8 % (0.0-8.0); HEMATOCRIT 44.1 % (42-54); LYMPHOCYTES % (AUTO) 24.8 % (21.0-51.0); MEAN CORPUSCULAR HEMOGLOBIN 28.5 pg (27.0-33.0); MEAN CORPUSCULAR VOLUME 83.9 fL (79-99); MONOCYTES % (AUTO) 6.4 % (3.0-13.0); NEUTROPHILS % (AUTO) 67.4 % (40.0-77.0); PLATELET COUNT (AUTO) 192 K/uL (130-400); RED BLOOD CELL COUNT(AUTO) 5.26 MIL/uL (4.50-6.20); RED CELL DISTRIBUTION WIDTH 14.3 % (11.0-15.5); WHITE BLOOD COUNT (AUTO) 8.8 K/uL (4.8-10.8)
[2019-06-15] MEDS ORDERED: IOHEXOL-350 75 ML VIAL IV ONE (16:50)
[2019-06-15 16:57] LABS: INR 0.92 (0.85-1.15); PARTIAL THROMBOPLASTIN TIME 25.5 SEC (26.3-35.5); PROTHROMBIN TIME 9.7 SEC (9.6-11.6)
[2019-06-15] MEDS ORDERED: SODIUM CHLORIDE 0.9% 1000ML 1,000 ML IV ONE (17:03)
[2019-06-15 17:04] LABS: ALBUMIN 3.2 g/dL (3.5-5.0); BILIRUBIN,TOTAL 0.4 mg/dL (0.2-1.0); CREATININE 1.4 mg/dL (0.5-1.5); POTASSIUM 3.8 mmol/L (3.5-5.1); TOTAL PROTEIN, SERUM 6.8 g/dL (6.0-8.3)
[2019-06-15] MEDS ORDERED: INSULIN HUMULIN R 100 UNIT/ML 3ML ONE (17:22)
[2019-06-15 22:47] VITALS: BP 125/81
--- NOTE | 2019-06-15 22:50 | NUR ---
INITIAL ASSESSMENT PATIENT IS TRANSPORTED TO ROOM IN STRETCHER BY ER NURSE. PATIENT IS ABLE TO TRANSFER TO BED BUT HAS UNSTEADY GATE DUE TO RIGHT SIDED WEAKNESS TO THE LOWER EXTREMITY. PATIENT WAS MADE COMFORTABLE IN BED. PATIENT DENIES ANY PAIN AT THIS TIME. PATIENT IS ALERT AND ORIENTED X4. CALL LIGHT IS AT BEDSIDE WITH PATIENT AND PATIENT DEMONSTRATES PROPER USE. IS WITH PATIENT AT BEDSIDE. PATIENT DENIES SHORTNESS OF BREATH. NO SIGNS OF DISTRESS. ALL BELONGING ARE WITH SPOUSE. PATIENT MADE AWARE TO STAY NPO UNTIL SEEN BY PHYSICIAN IN AM. PATIENT TOOK HIS OWN HOME MEDS ALREADY FOR THE NIGHT TIME. PATIENTS URINAL AND BEDSIDE TABLE WITHIN REACH. VOICES NO NEEDS AT THIS TIME.
[2019-06-16] VITALS (8 sets, daily range): BP systolic 126–141; BP diastolic 76–88
--- NOTE | 2019-06-16 | NUR ---
ASSESSMENT PATIENT IS RESTING IN BED. NO COMPLAINTS OF PAIN. NO SIGNS OF DISTRESS. NO SHORTNESS OF BREATH VOICED OR SEEN AT THIS TIME. CALL LIGHT REMAINS AT BEDSIDE WITHIN REACH. URINAL AND BEDSIDE TABLE WITHIN REACH. PATIENT VOICES NO NEEDS AT THIS TIME.
[2019-06-16] MEDS ORDERED: MIRT7.5T11 PO (00:06)
[2019-06-16] MEDS ORDERED: INVOK100TB PO (00:07)
--- NOTE | 2019-06-16 04:00 | NUR ---
ASSESSMENT PATIENT IS RESTING IN BED COMFORTABLY. NO PAIN VOICED AT THIS TIME. NO SIGNS OF DISTRESS. NO SHORTNESS OF BREATH SEEN OR VOICED. PATIENTS CALL LIGHT IS WITHIN REACH. PATIENTS URINAL IS AT BEDSIDE. NO NEEDS VOICED AT THIS TIME.
[2019-06-16] MEDS ORDERED: INSULIN HUMULIN R 100 UNIT/ML 3ML SQ SCH (07:30)
[2019-06-16] MEDS: CLOPIDOGREL BISULFATE 75 MG TAB PO SCH (08:29)
[2019-06-16] MEDS: ASPIRIN 81MG TAB.CHEW PO SCH (08:29)
[2019-06-16] MEDS: FAMOTIDINE 20MG TAB 20 MG TAB PO SCH ×2 (08:29→21:02)
[2019-06-16] MEDS: BUSPIRONE HCL 5 MG TABLET PO SCH (08:29)
[2019-06-16] MEDS: ATORVASTATIN CALCIUM 10 MG TABLET PO SCH (08:29)
[2019-06-16] MEDS: CITALOPRAM 20 MG TABLET PO SCH (08:29)
[2019-06-16] MEDS: PANTOPRAZOLE SODIUM 40 MG TABLET.DR PO SCH (08:29)
[2019-06-16] MEDS: ENOXAPARIN SODIUM 30 MG/0.3 ML SQ SCH (08:30)
[2019-06-16] MEDS ORDERED: METOPROLOL TARTRATE 25 MG TAB PO SCH ×2 (09:00→21:00)
[2019-06-16] MEDS ORDERED: LISINOPRIL 40 MG TABLET PO SCH ×2 (09:00→21:00)
[2019-06-16] MEDS ORDERED: LATANOPROST 2.5 ML DROPS OD SCH ×2 (09:00→21:00)
[2019-06-16] MEDS: INSULIN LISPRO 100 UNIT/ML 3ML SQ SCH ×3 (11:30→21:46)
[2019-06-16] MEDS: TRESIBA SQ SCH (16:30)
[2019-06-16] MEDS ORDERED: MIRTAZAPINE 15 MG TABLET PO SCH (21:00)
[2019-06-16] MEDS ORDERED: LISINOPRIL 2.5 MG TABLET ONE (21:12)
--- NOTE | 2019-06-17 02:30 | NUR ---
Low Blood Sugar Patient press call light requesting blood sugar check. BS reading at 49. Gave 8oz orange juice, crackers and peanut butter. Recheck blood sugar at it was at 119. Patient stable, no distress noted, AOX3. Call light with in reach. Will continue to monitor patient.
[2019-06-17 04:00] VITALS: BP 139/91
[2019-06-17] MEDS: INSULIN LISPRO 100 UNIT/ML 3ML SQ SCH ×3 (06:22→16:10)
[2019-06-17 07:25] VITALS: BP 127/88
[2019-06-17] MEDS: TRESIBA SQ SCH (08:00)
[2019-06-17] MEDS: FAMOTIDINE 20MG TAB 20 MG TAB PO SCH (08:46)
[2019-06-17] MEDS: ASPIRIN 81MG TAB.CHEW PO SCH (10:00)
[2019-06-17] MEDS: BUSPIRONE HCL 5 MG TABLET PO SCH (10:00)
[2019-06-17] MEDS: CITALOPRAM 20 MG TABLET PO SCH (10:00)
[2019-06-17] MEDS: ATORVASTATIN CALCIUM 10 MG TABLET PO SCH (10:00)
[2019-06-17] MEDS: CLOPIDOGREL BISULFATE 75 MG TAB PO SCH (10:00)
[2019-06-17] MEDS: PANTOPRAZOLE SODIUM 40 MG TABLET.DR PO SCH (10:00)
[2019-06-17] MEDS: ENOXAPARIN SODIUM 30 MG/0.3 ML SQ SCH (10:01)
[2019-06-17 11:40] VITALS: BP 120/89
--- NOTE | 2019-06-17 15:25 | NUR ---
HL REMOVED, CATHETER INTACT. DISCHARGE INSTRUCTIONS GIVEN, PT. AND SPOUSE AT BEDSIDE VERBALIZED MUTUAL UNDERSTANDING.
[2019-06-17] MEDS ORDERED: LISINOPRIL 2.5 MG TABLET PO SCH (21:00)
== END 2019-06-17 15:45 | disposition home or self-care (01) ==
LOC: EDH 16:09 → INTOOBSV 16:10 → EDHIP 16:10 → 2DH 21:37
PROVIDERS: ADMIT Internal Medicine; ATTEND Internal Medicine
DX: I63.9 Cerebral infarction, unspecified (principal); I12.9 Hypertensive chronic kidney disease with stage 1 through stage 4 chronic kidney disease, or unspecified chronic kidney disease; E10.22 Type 1 diabetes mellitus with diabetic chronic kidney disease; N18.9 Chronic kidney disease, unspecified; E10.319 Type 1 diabetes mellitus with unspecified diabetic retinopathy without macular edema; E10.43 Type 1 diabetes mellitus with diabetic autonomic (poly)neuropathy; K31.84 Gastroparesis; E10.65 Type 1 diabetes mellitus with hyperglycemia; E78.5 Hyperlipidemia, unspecified; G47.30 Sleep apnea, unspecified; R94.31 Abnormal electrocardiogram [ECG] [EKG]; I25.10 Atherosclerotic heart disease of native coronary artery without angina pectoris; Z95.1 Presence of aortocoronary bypass graft; Z79.4 Long term (current) use of insulin; Z79.82 Long term (current) use of aspirin; Z79.02 Long term (current) use of antithrombotics/antiplatelets; Z88.1 Allergy status to other antibiotic agents; W19.XXXA Unspecified fall, initial encounter
CPT/HCPCS: 36415; 70450; 70496; 70498; 80053; 82948 ×11; 84484; 85025; 85610; 85730; 93005; 96372 ×2; 99284; G0378 ×28; J1650 ×2; J1815; J7030; Q9967

== ENCOUNTER → 2019-07-05 | Outpatient (CLI) | payer MEDICAID ==
[~2019-07-05] MED LIST changes: -ALBU90AE IH; -BACL10TA PO; -DULA1.5P SQ; +INVOK100TB PO; +MIRT7.5T11 PO
== END | disposition home or self-care (01) ==
LOC: SHCH 10:19
PROVIDERS: ATTEND Internal Medicine Cardiovascular Disease
DX: I65.23 Occlusion and stenosis of bilateral carotid arteries (principal); I70.203 Unspecified atherosclerosis of native arteries of extremities, bilateral legs
CPT/HCPCS: 93880; 93925

== ENCOUNTER → 2020-08-06 | Outpatient (CLI) | payer MEDICAID ==
[~2020-08-06] MED LIST changes: -PANT40TA25 PO; +PANT40TA54 PO
== END | disposition home or self-care (01) ==
LOC: SHCH 11:00
PROVIDERS: ATTEND Internal Medicine Cardiovascular Disease
DX: I25.5 Ischemic cardiomyopathy (principal)
CPT/HCPCS: 93306

== ENCOUNTER 2020-11-01 20:36 | Emergency (ER) | payer MEDICAID ==
[~2020-11-01 20:36] MED LIST changes: -LISI40TA4 PO; +LISI40TA9 PO
[2020-11-01] MEDS ORDERED: ACETAMINOPHEN 500 MG TABLET ONE (20:57)
[2020-11-01] MEDS ORDERED: ONDANSETRON 4MG INJ ONE (20:57)
[2020-11-01 21:03] LABS: BASOPHILS % (AUTO) 0.2 % (0.0-5.0); HEMATOCRIT 49.4 % (42-54); LYMPHOCYTES % (AUTO) 22.6 % (21.0-51.0); MEAN CORPUSCULAR HEMOGLOBIN 28.5 pg (27.0-33.0); MEAN CORPUSCULAR HGB CONC 33.6 g/dL (32.0-36.0); MEAN CORPUSCULAR VOLUME 84.7 fL (79-99); MONOCYTES % (AUTO) 7.7 % (3.0-13.0); NEUTROPHILS % (AUTO) 69.3 % (40.0-77.0); PLATELET COUNT (AUTO) 114 K/uL (130-400); RED BLOOD CELL COUNT(AUTO) 5.83 MIL/uL (4.50-6.20); RED CELL DISTRIBUTION WIDTH 12.9 % (11.0-15.5); WHITE BLOOD COUNT (AUTO) 4.7 K/uL (4.8-10.8)
[2020-11-01 21:19] LABS: CREATININE 1.1 mg/dL (0.5-1.5); POTASSIUM 4.6 mmol/L (3.5-5.1)
[2020-11-01 21:23] LABS: ALBUMIN 3.4 g/dL (3.5-5.0); BILIRUBIN,TOTAL 0.5 mg/dL (0.2-1.0); CRP QUANTITATIVE 34.5 mg/L (0.00-9.0); TOTAL PROTEIN, SERUM 7.8 g/dL (6.0-8.3)
[2020-11-01 21:30] LABS: B-TYPE NATRIURETIC PEPTIDE 24 pg/mL (0-100)
== END 2020-11-01 22:56 | disposition home or self-care (01) ==
LOC: EDH 20:36
DX: U07.1 COVID-19 (principal); R11.2 Nausea with vomiting, unspecified; R10.9 Unspecified abdominal pain; E11.9 Type 2 diabetes mellitus without complications; I10 Essential (primary) hypertension; E78.5 Hyperlipidemia, unspecified; I25.10 Atherosclerotic heart disease of native coronary artery without angina pectoris; Z95.1 Presence of aortocoronary bypass graft; I25.2 Old myocardial infarction; Z88.1 Allergy status to other antibiotic agents; Z98.890 Other specified postprocedural states
CPT/HCPCS: 36415; 71045; 80053; 83605; 83690; 83880; 84145; 84484; 85025; 85378; 86140; 87040 ×2; 96361; 96374; 99284; J2405

== ENCOUNTER → 2021-02-12 | Outpatient (CLI) | payer MEDICAID | END | disposition home or self-care (01) | LOC: SHCH 07:34 | PROVIDERS: ATTEND Internal Medicine Cardiovascular Disease | DX: I65.23 Occlusion and stenosis of bilateral carotid arteries (principal); I73.9 Peripheral vascular disease, unspecified; I10 Essential (primary) hypertension | CPT/HCPCS: 93306; 93356; 93880; 93925 ==

== ENCOUNTER → 2022-11-10 | Outpatient (CLI) | payer MEDICAID ==
[~2022-11-10] MED LIST changes: +CLOP-31 PO; -CLOP75TA14 PO
[2022-11-10 13:25] LABS: BASOPHILS % (AUTO) 0.2 % (0.0-5.0); EOSINOPHILS % (AUTO) 0.3 % (0.0-8.0); HEMATOCRIT 51.4 % (42-54); MEAN CORPUSCULAR HGB CONC 32.1 g/dL (32.0-36.0); MONOCYTES % (AUTO) 5.7 % (3.0-13.0); NEUTROPHILS % (AUTO) 82.4 % (40.0-77.0); PLATELET COUNT (AUTO) 187 K/uL (130-400); RED BLOOD CELL COUNT(AUTO) 6.12 MIL/uL (4.50-6.20); RED CELL DISTRIBUTION WIDTH 15.6 % (11.0-15.5); WHITE BLOOD COUNT (AUTO) 18.2 K/uL (4.8-10.8)
[2022-11-10 13:34] LABS: CREATININE 1.3 mg/dL (0.5-1.5); INR 0.94 (0.85-1.15); POTASSIUM 3.7 mmol/L (3.5-5.1); PROTHROMBIN TIME 10.3 SEC (9.6-11.6)
[2022-11-10 13:35] LABS: PARTIAL THROMBOPLASTIN TIME 29.3 SEC (26.3-35.5)
== END | disposition home or self-care (01) ==
LOC: LAB 11:19
PROVIDERS: ATTEND Internal Medicine Cardiovascular Disease
DX: I73.9 Peripheral vascular disease, unspecified (principal); I10 Essential (primary) hypertension; I25.5 Ischemic cardiomyopathy; M79.662 Pain in left lower leg; E11.51 Type 2 diabetes mellitus with diabetic peripheral angiopathy without gangrene; Z79.01 Long term (current) use of anticoagulants; Z79.899 Other long term (current) drug therapy
CPT/HCPCS: 36415; 80048; 85025; 85610; 85730

== ENCOUNTER → 2023-02-25 | Outpatient (CLI) | payer MEDICAID ==
[2023-02-25 15:43] LABS: CREATININE 1.5 mg/dL (0.5-1.5); POTASSIUM 4.2 mmol/L (3.5-5.1)
== END | disposition home or self-care (01) ==
LOC: LAB 12:04
PROVIDERS: ATTEND Physician Assistant
DX: I10 Essential (primary) hypertension (principal)
CPT/HCPCS: 36415; 80048

== ENCOUNTER → 2023-03-11 | Outpatient (CLI) | payer MEDICAID ==
[~2023-03-11] MED LIST changes: +IOHEXOL 350 MG/ML 100ML INFUS..BTL IV ONE; +IOHEXOL-350 50ML VIAL IV ONE
== END | disposition home or self-care (01) ==
LOC: EDSTATUS 03-02 08:30 → RAH 08:34
PROVIDERS: ATTEND Internal Medicine Cardiovascular Disease
DX: I73.9 Peripheral vascular disease, unspecified (principal)
CPT/HCPCS: 75635; Q9967 ×2

== ENCOUNTER 2025-01-14 06:00 | Day surgery (SDC) | payer MEDICAID ==
[~2025-01-14] VITALS: Ht 172.7 cm; Wt 92.5 kg
[2025-01-14] VITALS (10 sets, daily range): BP systolic 94–135; BP diastolic 53–90; PULSE 63–69; RESP 13–17; TEMP 97.4–97.6
[~2025-01-14 06:00] MED LIST changes: -IOHEXOL 350 MG/ML 100ML INFUS..BTL IV ONE; -IOHEXOL-350 50ML VIAL IV ONE; +ONDA-245 PO; -ONDA8TAB12 PO
[2025-01-14] MEDS: 0.9%NACL 1000ML 1,000 ML IV ONE (06:46)
[2025-01-14] MEDS ORDERED: GABA-529 PO (06:57)
[2025-01-14] MEDS ORDERED: INSU500I SQ ×2 (06:57)
[2025-01-14] MEDS ORDERED: RIVA10TA PO (06:57)
[2025-01-14] MEDS ORDERED: ROSU40TA88 PO (06:57)
[2025-01-14] MEDS ORDERED: ESCI-8 PO (06:57)
[2025-01-14] MEDS ORDERED: proPOFol 10 MG/ML 20ML VIAL IV ONE (08:05)
== END 2025-01-14 09:12 | disposition home or self-care (01) ==
LOC: DAH 06:00 → ENDO 06:00
PROVIDERS: ATTEND Internal Medicine Gastroenterology
DX: R12 Heartburn (principal); K29.50 Unspecified chronic gastritis without bleeding; K31.89 Other diseases of stomach and duodenum; R93.3 Abnormal findings on diagnostic imaging of other parts of digestive tract; K31.84 Gastroparesis; K59.04 Chronic idiopathic constipation; F41.9 Anxiety disorder, unspecified; E78.5 Hyperlipidemia, unspecified; K21.9 Gastro-esophageal reflux disease without esophagitis; I25.10 Atherosclerotic heart disease of native coronary artery without angina pectoris; I10 Essential (primary) hypertension; E11.9 Type 2 diabetes mellitus without complications; Z95.1 Presence of aortocoronary bypass graft; Z95.5 Presence of coronary angioplasty implant and graft; Z89.412 Acquired absence of left great toe; Z88.1 Allergy status to other antibiotic agents; Z88.8 Allergy status to other drugs, medicaments and biological substances; Z79.82 Long term (current) use of aspirin; Z79.4 Long term (current) use of insulin; Z79.899 Other long term (current) drug therapy
CPT/HCPCS: 43239; 82948 ×2; J7030; J3490; A4620; A4215; J2704

== ENCOUNTER → 2025-02-27 | Outpatient (CLI) | payer MEDICAID ==
[~2025-02-27] MED LIST changes: -ASPI-1197 PO; -CITA-106 PO; +ESCI-8 PO; -FAMO20TA8 PO; +FAMO40TA7 PO; +GABA-529 PO; -INSU100C6 SQ; -INSU200I4 SQ; +INSU500I SQ; -INVOK100TB PO; +ONDA-243 PO; -ONDA-245 PO; -POTA99TA25 PO; -PRAV40TA3 PO; +RIVA10TA PO; +ROSU40TA88 PO; -TRAM50TA4 PO
--- NOTE | 2025-02-27 15:57 | HMCIMG ---
US RENAL SONOGRAM HISTORY: Abnormal renal function COMPARISON: None TECHNIQUE: Renal and bladder ultrasound study was performed. FINDINGS: The right kidney measures 10 x 4.5 x 4.4 cm. The left kidney measures 11.8 x 5.6 x 5.2 cm. No evidence of hydronephrosis is seen of either kidney. Both kidneys are seen. Bladder is moderately distended. Bladder wall measures 4 mm. IMPRESSION: 1. No hydronephrosis is seen.
== END | disposition home or self-care (01) ==
LOC: RAH 14:42
PROVIDERS: ATTEND Internal Medicine Nephrology
DX: N32.89 Other specified disorders of bladder (principal); R94.4 Abnormal results of kidney function studies
CPT/HCPCS: 76770